=== PATIENT | female | born 1945 | race Caucasian/White ===

== ENCOUNTER 2016-04-08 10:39 | Emergency (ER) | payer MEDICARE, OTHER ==
--- NOTE | 2016-04-08 12:45 | EDDOCDS ---
Physician Documentation [facility] Name: Renate Mendez Age: 70 yrs Sex: Female : 1945 Arrival Date: 04/08/2016 Time: 10:39 Bed Family 1 Private MD: NO PRIMARY PHYSICIAN, . Disposition: 04/08/16 12:33 Discharged to Home/Self Care. Impression: Acute upper respiratory infection, unspecified, Cough. - Condition is Stable. - Discharge Instructions: Upper Respiratory Infection, Adult. - Prescriptions for Zithromax Z- Royce 250 mg Oral Tablet - take 1 tablet by ORAL route as directed for 5 days Day 1- take two tablets once. Day 2, 3, 4 , 5 take one tablet once daily.; 6 tablet. benzonatate 200 mg Oral Capsule - take 1 capsule by ORAL route 3 times per day As needed; 30 capsule. - Medication Reconciliation, Local Pharmacy Hours form. - Follow up: Emergency Department; When: As needed; Reason: Worsening of conditions. Follow up: [facility]; When: Call to arrange an appointment; Reason: Recheck today's complaints, Continuance of care, To establish care. - Problem is new. - Symptoms are unchanged. Historical: - Allergies: Latex (Hives, Rash); - Home Meds: 1. Paxil 10 mg Oral tab 1 tab once daily 2. Klonopin 1 mg Oral tab daily 3. Nexium 40 mg Oral cpDR 1 cap 2 times per day 4. prolia twice a year - PMHx: dysphagia; Anxiety; - PSHx: Appendectomy; Lumpectomy left and right; Hysterectomy; cervical spine ruptured disc; - Social history: Smoking status: Patient states was never smoker of tobacco. No barriers to communication noted, The patient speaks fluent [place]. - Family history: Not pertinent. - : The pt / caregiver states he / she is not on anticoagulants. Home medication list is obtained from the patient. - Exposure Risk Screening:: None identified. Vital Signs: 04/08 10:41 BP 143 / 81; Pulse 97; Resp 18; Temp 98.5(O); Pulse Ox 100% on R/A; Weight 49.9 kg / elp 110.01 lbs (R); Height 5 ft. 2 in. (157.48 cm) (R); Pain 10/10; 12:41 BP 113 / 63; Pulse 78; Resp 18; Temp 100.3; Pulse Ox 99% on R/A; Pain 9/10; ct3 10:41 Body Mass Index 20.12 (49.90 kg, 157.48 cm) elp MDM: 10:59 Strep Screen, Nursing ordered. dt4 11:14 GATS (NEGATIVE STREP SCREEN) Ordered. EDMS 11:26 Financial registration complete. lg 11:33 Obtain sample by nasopharyngeal swab ordered. dt4 11:34 -Influenza A&B Rapid Antigen - Nose Ordered. EDMS 11:35 Chest, 2 View (pa\E\lat) Ordered. EDMS 11:51 [facility] Payment Agreement was scanned into [employer] and attached to record. lg Signatures: Dispatcher MedHost EDMD Freeman Sinclair, RN RN Allyson Pack, Reg Reg Rain Ruelas, RN RN Ariana Reyes, CATHERINE PA-C dt4 The chart was reviewed and I authenticate all verbal orders and agree with the evaluation and treatment provided.Attachments: 11:51 [facility] Payment Agreement lg MTDD
--- NOTE | 2016-04-08 12:45 | EDDOCDS ---
Nurse's Notes [facility] Name: Renate Mendez Age: 70 yrs Sex: Female : 1945 Arrival Date: 04/08/2016 Time: 10:39 Bed Family 1 Private MD: NO PRIMARY PHYSICIAN, . Diagnosis: Acute upper respiratory infection, unspecified;Cough Presentation: 04/08 10:47 Presenting complaint: Patient states: sore throat and MELÉNDEZ began this past Sunday, jjr vomiting Sunday night with none since continues to report nausea. Adult Sepsis Screening: The patient does not have new or worsening altered mentation. Patient's respiratory rate is less than 22. Systolic blood pressure is greater than 100. Patient has a qSOFA score of 0- Negative Sepsis Screen. Suicide/Homicide risk assessment- the patient denies having any suicidal and/or homicidal ideations and does not present with any other emotional, behavioral or mental health complaints. 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 Transition of care: patient was not received from another setting of care. 10:47 Acuity: ZURDO Level 4 jjr 10:47 Method Of Arrival: Walkin/Carried/Asstd jjr Triage Assessment: 10:52 General: Appears in no apparent distress, well nourished, well groomed, Behavior is jjr appropriate for age. Pain: Location: throat and forehead and sinuses. Respiratory: Airway is patent Respiratory effort is even, unlabored, Respiratory pattern is regular. Historical: - Allergies: Latex (Hives, Rash); - Home Meds: 1. Paxil 10 mg Oral tab 1 tab once daily 2. Klonopin 1 mg Oral tab daily 3. Nexium 40 mg Oral cpDR 1 cap 2 times per day 4. prolia twice a year - PMHx: dysphagia; Anxiety; - PSHx: Appendectomy; Lumpectomy left and right; Hysterectomy; cervical spine ruptured disc; - Social history: Smoking status: Patient states was never smoker of tobacco. No barriers to communication noted, The patient speaks fluent Irish. - Family history: Not pertinent. - : The pt / caregiver states he / she is not on anticoagulants. Home medication list is obtained from the patient. - Exposure Risk Screening:: None identified. Screenin:50 Screening information is obtained from the patient. Fall risk: No risks identified. jjr Assistance ADL's: requires no assistance with activities of daily living. Abuse/DV Screen: The patient / caregiver reports he/she is: not in a situation that causes fear, pain or injury. Nutritional screening: No deficits noted. Advance Directives: There is no active DNR order. home support is adequate. Assessment: 11:50 General: Appears in no apparent distress, slender, well nourished, well groomed, jjr Behavior is appropriate for age. Respiratory: Airway is patent Respiratory effort is even, unlabored, Respiratory pattern is regular, Breath sounds are clear bilaterally. Derm: No deficits noted. Vital Signs: 10:41 BP 143 / 81; Pulse 97; Resp 18; Temp 98.5(O); Pulse Ox 100% on R/A; Weight 49.9 kg (R); elp Height 5 ft. 2 in. (157.48 cm) (R); Pain 10/10; 12:41 BP 113 / 63; Pulse 78; Resp 18; Temp 100.3; Pulse Ox 99% on R/A; Pain 9/10; ct3 10:41 Body Mass Index 20.12 (49.90 kg, 157.48 cm) elp Vitals: 10:41 Log In Time: April 08, 2016 at 10:40. elp 11:13 Strep Screen is obtained and tested: Negative, a GATSNEG culture is ordered in [facility] jr and sent. ED Course: 10:41 Patient visited by Lachelle Valladares PCA. elp 10:41 NO PRIMARY PHYSICIAN, . is Private Physician. elp 10:41 Patient moved to Waiting elp 10:42 Patient moved to Pre RCE elp 10:48 Triage Initiated jjr 10:59 Patient moved to Triage 2 jjr 11:21 [facility] dt4 11:21 Candi Campos MD is Attending Physician. dt4 11:21 Patient visited by Ariana Redd PA-C. dt4 11:31 Patient moved to Family 1 ct3 11:49 -Influenza A&B Rapid Antigen - Nose Sent. jjr 11:51 [facility] [place] Payment Agreement was scanned into [employer] and attached to record. lg 11:52 Patient visited by Mila Castillo PCA. ct3 12:32 Patient visited by Mila Castillo PCA. ct3 12:33 [facility] is Referral Physician. dt4 12:42 Patient visited by Mila Castillo PCA. ct3 12:45 The patient / caregiver is instructed regarding the plan of care and ED course. dwg 12:45 No IV's were initiated during this patient's visit. No procedures done that require dwg assistance. Order Results: Lab Order: -Influenza A&B Rapid Antigen - Nose; SPEC'M 04/08/16 11:42 Test: INFLUENZA A RAPID SCR by ICA; Value: INFLUENZA A RESULTS NEGATIVE; Status: F Test: INFLUENZA A RAPID SCR by ICA; Value: Comments:; Status: F Test: INFLUENZA B RAPID SCR by ICA; Value: INFLUENZA B RESULTS NEGATIVE; Status: F Test Note: ; The Influenza test is a direct rapid immunoassay for the qualitative detection of Influenza viral antigen. Cell culture (Viral Culture) testing should be considered to confirm NEGATIVE results and to assist in detecting other viruses that can provide similar clinical symptoms. Please contact the lab within 24 hours ([phone]) if confirmatory testing is desired. Outcome: 12:33 Discharge ordered by Provider. dt4 12:44 Discharge Assessment: Patient awake, alert and oriented x 3. No cognitive and/or dwg functional deficits noted. Patient verbalized understanding of disposition instructions. patient administered narcotics - no. The following High Risk Discharge criteria are identified: None. Discharged to home ambulatory, with family. Condition: good Condition: stable. No special radiology studies were completed. Property sent home with patient. 12:45 Patient left the ED. dwg Signatures: Freeman Sinclair RN RN Allyson Pack, Rain Dubois lg RN RN jjMila Talbot PCA SMEARER ct3 Lachelle Valladares PCA SMEARER elp Ariana Redd PA-C PA-C dt4 Corrections: (The following items were deleted from the chart) 10:49 10:47 Presenting complaint: Patient states: sore throat and MELÉNDEZ began this past sunday jjr MTDD
--- NOTE | 2016-04-10 11:02 | REP ---
PA and lateral chest: Comparison is 02/04/2008. The lung guillen are clear. The cardiac size is normal The ariana, mediastinum, and bony thorax are unremarkable. Impression: Negative PA and lateral chest. There is no interval change. Signed by Fremean Rivas MD 04/08/2016 11:52 A
--- NOTE | 2016-04-10 13:47 | EDDOCDS ---
Nurse's Notes [facility] Name: Renate Mendez Age: 70 yrs Sex: Female : 1945 Arrival Date: 04/08/2016 Time: 10:39 Bed Family 1 Private MD: NO PRIMARY PHYSICIAN, . Diagnosis: Acute upper respiratory infection, unspecified;Cough Presentation: 04/08 10:47 Presenting complaint: Patient states: sore throat and MELÉNDEZ began this past Sunday, jjr vomiting Sunday night with none since continues to report nausea. Adult Sepsis Screening: The patient does not have new or worsening altered mentation. Patient's respiratory rate is less than 22. Systolic blood pressure is greater than 100. Patient has a qSOFA score of 0- Negative Sepsis Screen. Suicide/Homicide risk assessment- the patient denies having any suicidal and/or homicidal ideations and does not present with any other emotional, behavioral or mental health complaints. 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 Transition of care: patient was not received from another setting of care. 10:47 Acuity: ZURDO Level 4 jjr 10:47 Method Of Arrival: Walkin/Carried/Asstd jjr Triage Assessment: 10:52 General: Appears in no apparent distress, well nourished, well groomed, Behavior is jjr appropriate for age. Pain: Location: throat and forehead and sinuses. Respiratory: Airway is patent Respiratory effort is even, unlabored, Respiratory pattern is regular. Historical: - Allergies: Latex (Hives, Rash); - Home Meds: 1. Paxil 10 mg Oral tab 1 tab once daily 2. Klonopin 1 mg Oral tab daily 3. Nexium 40 mg Oral cpDR 1 cap 2 times per day 4. prolia twice a year - PMHx: dysphagia; Anxiety; - PSHx: Appendectomy; Lumpectomy left and right; Hysterectomy; cervical spine ruptured disc; - Social history: Smoking status: Patient states was never smoker of tobacco. No barriers to communication noted, The patient speaks fluent Armenian. - Family history: Significant other has/had similar symptoms recently. - : The pt / caregiver states he / she is not on anticoagulants. Home medication list is obtained from the patient. - Exposure Risk Screening:: None identified. Screenin:50 Screening information is obtained from the patient. Fall risk: No risks identified. jjr Assistance ADL's: requires no assistance with activities of daily living. Abuse/DV Screen: The patient / caregiver reports he/she is: not in a situation that causes fear, pain or injury. Nutritional screening: No deficits noted. Advance Directives: There is no active DNR order. home support is adequate. Assessment: 11:50 General: Appears in no apparent distress, slender, well nourished, well groomed, jjr Behavior is appropriate for age. Respiratory: Airway is patent Respiratory effort is even, unlabored, Respiratory pattern is regular, Breath sounds are clear bilaterally. Derm: No deficits noted. 12:50 Respiratory: Reports. [facility] Vital Signs: 10:41 BP 143 / 81; Pulse 97; Resp 18; Temp 98.5(O); Pulse Ox 100% on R/A; Weight 49.9 kg (R); elp Height 5 ft. 2 in. (157.48 cm) (R); Pain 10/10; 12:41 BP 113 / 63; Pulse 78; Resp 18; Temp 100.3; Pulse Ox 99% on R/A; Pain 9/10; ct3 10:41 Body Mass Index 20.12 (49.90 kg, 157.48 cm) elp Vitals: 10:41 Log In Time: April 08, 2016 at 10:40. elp 11:13 Strep Screen is obtained and tested: Negative, a GATSNEG culture is ordered in [facility] jjr and sent. ED Course: 10:41 Patient visited by Lachelle Valladares PCA. elp 10:41 NO PRIMARY PHYSICIAN, . is Private Physician. elp 10:41 Patient moved to Waiting elp 10:42 Patient moved to Pre RCE elp 10:48 Triage Initiated jjr 10:59 Patient moved to Triage 2 jjr 11:21 [facility] eRdd [facility]-C [facility] dt4 11:21 Candi Campos MD is Attending Physician. dt4 11:21 Patient visited by Ariana Redd PA-C. dt4 11:31 Patient moved to Family 1 ct3 11:49 -Influenza A&B Rapid Antigen - Nose Sent. jjr 11:51 [facility] [place] Agreement was scanned into [email or web address] and attached to record. lg 11:52 Patient visited by Mila Castillo PCA. ct3 12:32 Patient visited by Mila Castillo PCA. ct3 12:33 [facility] is Referral Physician. dt4 12:42 Patient visited by Mila Castillo PCA. ct3 12:45 The patient / caregiver is instructed regarding the plan of care and ED course. dwg 12:45 No IV's were initiated during this patient's visit. No procedures done that require dwg assistance. 12:50 T-Sheet-- Draft Copy was scanned into [email or web address] and attached to record. [facility] 04/10 11:18 Chest, 2 View (pa\E\lat) Returned. EDMS Order Results: Lab Order: GATS (NEGATIVE STREP SCREEN); SPEC'M 04/08/16 11:15 Test: GATS CULTURE (NEG STREP SCR); Value: GATS RESULT NEGATIVE FOR STREP PYOGENES (GROUP A); Status: F Test: GATS CULTURE (NEG STREP SCR); Value: <EXTERNAL COMMENT eCWMed> FULL REPORT IN LAB NOTES (eCW and Medent).; Status: F Lab Order: -Influenza A&B Rapid Antigen - Nose; SPEC'M 04/08/16 11:42 Test: INFLUENZA A RAPID SCR by ICA; Value: INFLUENZA A RESULTS NEGATIVE; Status: F Test: INFLUENZA A RAPID SCR by ICA; Value: Comments:; Status: F Test: INFLUENZA B RAPID SCR by ICA; Value: INFLUENZA B RESULTS NEGATIVE; Status: F Test Note: ; The Influenza test is a direct rapid immunoassay for the qualitative detection of Influenza viral antigen. Cell culture (Viral Culture) testing should be considered to confirm NEGATIVE results and to assist in detecting other viruses that can provide similar clinical symptoms. Please contact the lab within 24 hours ([phone]) if confirmatory testing is desired. Radiology Order: Chest, 2 View (pa\E\lat) Test: Chest, 2 View (pa\E\lat) REASON FOR EXAMINATION: Cough; PA and lateral chest:; ; Comparison is 02/04/2008.; ; The lung guillen are clear. The cardiac size is normal; ; The ariana, mediastinum, and bony thorax are unremarkable.; ; Impression:; ; Negative PA and lateral chest. There is no interval change.; ; ; Signed by; Freeman Rivas MD 04/08/2016 11:52 A; Outcome: 04/08 12:33 Discharge ordered by Provider. dt4 12:44 Discharge Assessment: Patient awake, alert and oriented x 3. No cognitive and/or dwg functional deficits noted. Patient verbalized understanding of disposition instructions. patient administered narcotics - no. The following High Risk Discharge criteria are identified: None. Discharged to home ambulatory, with family. Condition: good Condition: stable. No special radiology studies were completed. Property sent home with patient. 12:45 Patient left the ED. dwg 12:48 The following High Risk Discharge criteria are identified: Discharged to. [facility] Signatures: Dispatcher MedHost EDMS Freeman Sinclair RN RN dwAllysno Naidu, Rain Dubois lg, RN RN rodgerr Mila Castillo, ADJUNCT INSTRUCTOR ADJUNCT INSTRUCTOR ct3 Lachelle Valladares, ADJUNCT INSTRUCTOR ADJUNCT INSTRUCTOR elp Ariana Redd, PAIsaC PA-C dt4 Abbey Cuellar Corrections: (The following items were deleted from the chart) 10:49 10:47 Presenting complaint: Patient states: sore throat and MELÉNDEZ began this past sunday jjr 12:51 12:45 Family history Not pertinent, [facility] Chart Complete MTDD
--- NOTE | 2016-04-10 13:47 | EDDOCDS ---
Physician Documentation [facility] Name: Renate Mendez Age: 70 yrs Sex: Female : 1945 Arrival Date: 04/08/2016 Time: 10:39 Bed Family 1 Private MD: NO PRIMARY PHYSICIAN, . Disposition: 04/08/16 12:33 Discharged to Home/Self Care. Impression: Acute upper respiratory infection, unspecified, Cough. - Condition is Stable. - Discharge Instructions: Upper Respiratory Infection, Adult. - Prescriptions for Zithromax Z- Royce 250 mg Oral Tablet - take 1 tablet by ORAL route as directed for 5 days Day 1- take two tablets once. Day 2, 3, 4 , 5 take one tablet once daily.; 6 tablet. benzonatate 200 mg Oral Capsule - take 1 capsule by ORAL route 3 times per day As needed; 30 capsule. - Medication Reconciliation, Local Pharmacy Hours form. - Follow up: Emergency Department; When: As needed; Reason: Worsening of conditions. Follow up: [facility]; When: Call to arrange an appointment; Reason: Recheck today's complaints, Continuance of care, To establish care. - Problem is new. - Symptoms are unchanged. Historical: - Allergies: Latex (Hives, Rash); - Home Meds: 1. Paxil 10 mg Oral tab 1 tab once daily 2. Klonopin 1 mg Oral tab daily 3. Nexium 40 mg Oral cpDR 1 cap 2 times per day 4. prolia twice a year - PMHx: dysphagia; Anxiety; - PSHx: Appendectomy; Lumpectomy left and right; Hysterectomy; cervical spine ruptured disc; - Social history: Smoking status: Patient states was never smoker of tobacco. No barriers to communication noted, The patient speaks fluent [place]er. - Family history: Significant other has/had similar symptoms recently. - : The pt / caregiver states he / she is not on anticoagulants. Home medication list is obtained from the patient. - Exposure Risk Screening:: None identified. Vital Signs: 04/08 10:41 BP 143 / 81; Pulse 97; Resp 18; Temp 98.5(O); Pulse Ox 100% on R/A; Weight 49.9 kg / elp 110.01 lbs (R); Height 5 ft. 2 in. (157.48 cm) (R); Pain 10/10; 12:41 BP 113 / 63; Pulse 78; Resp 18; Temp 100.3; Pulse Ox 99% on R/A; Pain 9/10; ct3 10:41 Body Mass Index 20.12 (49.90 kg, 157.48 cm) elp MDM: 10:59 Strep Screen, Nursing ordered. dt4 11:14 GATS (NEGATIVE STREP SCREEN) Ordered. EDMS 11:26 Financial registration complete. lg 11:33 Obtain sample by nasopharyngeal swab ordered. dt4 11:34 -Influenza A&B Rapid Antigen - Nose Ordered. EDMS 11:35 Chest, 2 View (pa\E\lat) Ordered. EDMS 11:51 [facility] [place] Agreement was scanned into [employer] and attached to record. lg 12:50 T-Sheet-- Draft Copy was scanned into [employer]OR[employer] and attached to record. [facility] Signatures: Dispatcher MedHost EDFreeman Amezquita, RN Allyson Arboleda, Reg Reg Rain Ruelas RN RN Ariana Reyes, PA-C PA-C Abbey Stuart se The chart was reviewed and I authenticate all verbal orders and agree with the evaluation and treatment provided.Corrections: (The following items were deleted from the chart) 12:51 12:45 Family history Not pertinent, leonidas lauren Attachments: 11:51 [facility] [place] Payment Agreement lg 12:50 T-Sheet-- Draft Copy [facility] Chart Complete MTDD
--- NOTE | 2016-04-10 13:47 | EDDOCDS ---
Physician Documentation [facility] Name: Renate Mendez Age: 70 yrs Sex: Female : 1945 Arrival Date: 04/08/2016 Time: 10:39 Bed Family 1 Private MD: NO PRIMARY PHYSICIAN, . Disposition: 04/08/16 12:33 Discharged to Home/Self Care. Impression: Acute upper respiratory infection, unspecified, Cough. - Condition is Stable. - Discharge Instructions: Upper Respiratory Infection, Adult. - Prescriptions for Zithromax Z- Royce 250 mg Oral Tablet - take 1 tablet by ORAL route as directed for 5 days Day 1- take two tablets once. Day 2, 3, 4 , 5 take one tablet once daily.; 6 tablet. benzonatate 200 mg Oral Capsule - take 1 capsule by ORAL route 3 times per day As needed; 30 capsule. - Medication Reconciliation, Local Pharmacy Hours form. - Follow up: Emergency Department; When: As needed; Reason: Worsening of conditions. Follow up: [facility]; When: Call to arrange an appointment; Reason: Recheck today's complaints, Continuance of care, To establish care. - Problem is new. - Symptoms are unchanged. Historical: - Allergies: Latex (Hives, Rash); - Home Meds: 1. Paxil 10 mg Oral tab 1 tab once daily 2. Klonopin 1 mg Oral tab daily 3. Nexium 40 mg Oral cpDR 1 cap 2 times per day 4. prolia twice a year - PMHx: dysphagia; Anxiety; - PSHx: Appendectomy; Lumpectomy left and right; Hysterectomy; cervical spine ruptured disc; - Social history: Smoking status: Patient states was never smoker of tobacco. No barriers to communication noted, The patient speaks fluent British. - Family history: Significant other has/had similar symptoms recently. - : The pt / caregiver states he / she is not on anticoagulants. Home medication list is obtained from the patient. - Exposure Risk Screening:: None identified. Vital Signs: 04/08 10:41 BP 143 / 81; Pulse 97; Resp 18; Temp 98.5(O); Pulse Ox 100% on R/A; Weight 49.9 kg / elp 110.01 lbs (R); Height 5 ft. 2 in. (157.48 cm) (R); Pain 10/10; 12:41 BP 113 / 63; Pulse 78; Resp 18; Temp 100.3; Pulse Ox 99% on R/A; Pain 9/10; ct3 10:41 Body Mass Index 20.12 (49.90 kg, 157.48 cm) elp MDM: 10:59 Strep Screen, Nursing ordered. dt4 11:14 GATS (NEGATIVE STREP SCREEN) Ordered. EDMS 11:26 Financial registration complete. lg 11:33 Obtain sample by nasopharyngeal swab ordered. dt4 11:34 -Influenza A&B Rapid Antigen - Nose Ordered. EDMS 11:35 Chest, 2 View (pa\E\lat) Ordered. EDMS 11:51 [facility] [place] Payment Agreement was scanned into [employer] and attached to record. lg 12:50 T-Sheet-- Draft Copy was scanned into [employer] and attached to record. [facility] Signatures: Dispatcher [employer]Host EDFreeman Amezquita, RN Allyson Arboleda, Reg Reg Rain Ruelas RN RN Ariana Reyes, PA-C PA-C Abbey Stuart se The chart was reviewed and I authenticate all verbal orders and agree with the evaluation and treatment provided.Corrections: (The following items were deleted from the chart) 12:51 12:45 Family history Not pertinent, leonidas lauren Attachments: 11:51 [facility] Payment Agreement lg 12:50 T-Sheet-- Draft Copy [facility] Chart Complete MTDD
== END 2016-04-08 12:45 | disposition home or self-care (01) ==
LOC: M ED 10:39
DX: J06.9 Acute upper respiratory infection, unspecified (principal); R13.10 Dysphagia, unspecified; F41.9 Anxiety disorder, unspecified; Z79.899 Other long term (current) drug therapy; Z91.040 Latex allergy status

== ENCOUNTER → 2016-07-19 | Outpatient (CLI) | payer MEDICARE, OTHER ==
--- NOTE | 2016-07-19 17:43 | REP ---
RIGHT HAND SERIES, COMPLETE: 07/19/2016. Clinical history: pain right hand and its joints. Prior study. Findings: Four views are provided. Distal radius and ulna show no fracture. Carpal bones without fracture, subluxation or destructive lesion. CMC joints with minimal degenerative changes. No visible fracture of the metacarpals, the MCP and IP joints. Minimal degenerative change and small marginal osteophytes DIP joints of digits and IP joint of the thumb. No fracture of the phalanges nor avulsion. No erosive change. Impression: 1. 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 The largest osteophytes are on the IP joints distally. Signed by Rios Villegas MD 07/20/2016 05:20 P
== END ==
LOC: M ADAMS 16:00
PROVIDERS: ATTEND Physician Assistant
DX: M25.541 Pain in joints of right hand (principal); M25.741 Osteophyte, right hand
CPT/HCPCS: 73130; 86038; 86431; G0463

== ENCOUNTER → 2016-07-19 | Outpatient (REF) | payer MEDICARE, OTHER | LOC: M SFHCADAM 15:54 | PROVIDERS: ATTEND Physician Assistant | DX: M25.541 Pain in joints of right hand (principal) ==

== ENCOUNTER 2017-01-06 23:28 | Emergency (ER) | payer MEDICARE, OTHER ==
[~2017-01-06] VITALS: Ht 160 cm; Wt 50.0 kg
[2017-01-06] MEDS ORDERED: NEXI40CA PO (23:40)
[2017-01-06] MEDS ORDERED: PROL60SO SC (23:40)
[2017-01-06] MEDS ORDERED: IBUP-1114 PO (23:40)
[2017-01-06] MEDS ORDERED: PAXI10TA12 PO (23:40)
[2017-01-06] MEDS ORDERED: KLON1TAB PO (23:40)
[2017-01-06] MEDS ORDERED: AUGM875T28 PO (23:40)
[2017-01-07 02:14] LABS: BASO # 0.1 10^3/uL (0.0-0.2); BASO % 0.8 % (0.0-1.0); EOS # 0.2 10^3/uL (0.0-0.50); EOS % 2.3 % (0.0-3.0); IMMATURE GRANULOCYTE % 0.1 % (0-0); LYMPH # 2.9 10^3/uL (1.5-4.5); LYMPH % 39.1 % (24.0-44.0); MEAN CORPUSCULAR HEMOGLOBIN 29.3 pg (27.0-33.0); MEAN CORPUSCULAR HGB CONC 33.4 g/dl (32.0-36.5); MEAN CORPUSCULAR VOLUME 87.7 fl (80.0-96.0); MONO # 0.6 10^3/uL (0.0-0.8); MONO % 7.9 % (0.0-5.0); NEUTROPHILS # 3.7 10^3/uL (1.8-7.7); NEUTROPHILS % 49.8 % (36.0-66.0); PLATELET COUNT, AUTOMATED 243 10^3/uL (150-450); RED CELL DISTRIBUTION WIDTH 13.9 % (11.5-14.5); WHITE BLOOD COUNT 7.4 10^3/uL (4.0-10.0)
[2017-01-07 03:09] LABS: ERYTHROCYTE SEDIMENTATION RATE 5 mm/hr (0-30)
[2017-01-07] MEDS ORDERED: CARB20TA PO (03:20)
[2017-01-07] MEDS ORDERED: carBAMazepine 100 MG *1/2* TAB PO ONE (03:30)
[2017-01-07 03:37] VITALS: BP 141/75
== END 2017-01-07 03:44 | disposition home or self-care (01) ==
LOC: M ED 23:28
DX: G50.0 Trigeminal neuralgia (principal); K21.9 Gastro-esophageal reflux disease without esophagitis; F41.9 Anxiety disorder, unspecified; M81.0 Age-related osteoporosis without current pathological fracture; Z79.2 Long term (current) use of antibiotics; Z79.899 Other long term (current) drug therapy

== ENCOUNTER → 2017-02-28 | Outpatient (REF) | payer MEDICARE, OTHER ==
[~2017-02-28] MED LIST: AUGM875T28 PO; CARB20TA PO; IBUP-1114 PO; KLON1TAB PO; NEXI40CA PO; PAXI10TA12 PO; PROL60SO SC
== END ==
LOC: M LAB REF 13:45
PROVIDERS: ATTEND Physician Assistant Medical
DX: J02.9 Acute pharyngitis, unspecified (principal)

== ENCOUNTER → 2017-10-24 | Outpatient (REF) | payer MEDICARE, OTHER ==
[2017-10-24 12:02] LABS: HEMATOCRIT 40.5 % (36.0-47.0); HEMOGLOBIN 13.2 g/dl (12.0-15.5); MEAN CORPUSCULAR HEMOGLOBIN 29.1 pg (27.0-33.0); MEAN CORPUSCULAR HGB CONC 32.6 g/dl (32.0-36.5); MEAN CORPUSCULAR VOLUME 89.4 fl (80.0-96.0); PLATELET COUNT, AUTOMATED 277 10^3/uL (150-450); RED BLOOD COUNT 4.53 10^6/uL (4.00-5.40); RED CELL DISTRIBUTION WIDTH 13.8 % (11.5-14.5)
[2017-10-24 12:33] LABS: FOLATE 14.4 NG/ML (>5.4); TOTAL 25(OH) VITAMIN D 117.2 NG/ML (30.0-100.0); VITAMIN B12 LEVEL 499 PG/ML (247-911)
[2017-10-24 12:45] LABS: ALBUMIN 3.8 GM/DL (3.2-5.2); ALBUMIN/GLOBULIN RATIO 1.27 (1.00-1.93); ALKALINE PHOSPHATASE 55 U/L (45-117); ALT/SGPT 24 U/L (12-78); ANION GAP 7 MEQ/L (8-16); AST/SGOT 12 U/L (7-37); BILIRUBIN,TOTAL 0.4 MG/DL (0.2-1.0); BLOOD UREA NITROGEN 15 MG/DL (7-18); CALCIUM LEVEL 8.9 MG/DL (8.8-10.2); CARBON DIOXIDE LEVEL 25 MEQ/L (21-32); CHLORIDE LEVEL 112 MEQ/L (98-107); CHOLESTEROL LEVEL 201 MG/DL (<200); CHOLESTEROL RISK RATIO 2.512 (<5); CREATININE FOR GFR 0.99 MG/DL (0.55-1.30); FREE T4 1.03 NG/DL (0.76-1.46); GLUCOSE, FASTING 105 MG/DL (70-100); HDL CHOLESTEROL 80 MG/DL (>40); LDL CHOLESTEROL 106.4 MG/DL (<100); NON-HDL-C 121 MG/DL; POTASSIUM SERUM 4.8 MEQ/L (3.5-5.1); SODIUM LEVEL 144 MEQ/L (136-145); TOTAL PROTEIN 6.8 GM/DL (6.4-8.2); TRIGLYCERIDES LEVEL 73 MG/DL (<150)
== END ==
LOC: M LABDRAW1 11:01
DX: K13.70 Unspecified lesions of oral mucosa (principal); M81.0 Age-related osteoporosis without current pathological fracture; E05.90 Thyrotoxicosis, unspecified without thyrotoxic crisis or storm; G50.0 Trigeminal neuralgia; Z13.220 Encounter for screening for lipoid disorders
CPT/HCPCS: 82746

== ENCOUNTER → 2018-01-15 | Outpatient (REF) | payer MEDICARE, OTHER | LOC: M LAB REF 15:55 | DX: M81.0 Age-related osteoporosis without current pathological fracture (principal) | CPT/HCPCS: 82310 ==

== ENCOUNTER 2018-04-10 06:44 | Day surgery (SDC) | payer MEDICARE, OTHER ==
[~2018-04-10] VITALS: Ht 157.5 cm; Wt 52.6 kg
[~2018-04-10 06:44] MED LIST changes: +ASPI325T PO; +BIOT50004 PO; +BLAC1CAP2 PO; +CALC600T31 PO; +MULT1TAB10 PO; +PANT40TA3 PO; +VITA1TAB7 PO; +VITA50005 PO; +VITA500T3 PO
[2018-04-10] MEDS ORDERED: NS 1,000 ML IV ONE (06:45)
[2018-04-10] MEDS ORDERED: LIDOCAINE 2% INJ 100 MG/5 ML SDV (FOR ANES.) As Ordered ONE (07:21)
[2018-04-10] MEDS ORDERED: PROPOFOL 200 MG/20 ML VIAL As Ordered ONE (07:21)
[2018-04-10] MEDS ORDERED: fentaNYL 100 MCG/2 ML INJECTION (J3010) As Ordered ONE (07:50)
--- NOTE | 2018-04-10 08:20 | ROOR ---
Patient Name: Renate Mendez Procedure Date: 04/10/2018 7:58 AM Date of : 1945 Age: 72 Room: [facility] Gender: Female Note Status: Finalized Procedure: Upper Endoscopy + Biopsies Indications: Heartburn, Exclusion of Graham's esophagus Providers: Ayden Lomas MD Referring MD: FITZ Henry Requesting Provider: Medicines: Monitored Anesthesia Care Complications: No immediate complications. Procedure: Pre-Anesthesia Assessment: - The heart rate, respiratory rate, oxygen saturations, blood pressure, adequacy of pulmonary ventilation, and response to care were monitored throughout the procedure. The Endoscope was introduced through the mouth, and advanced to the second part of duodenum. The upper GI endoscopy was accomplished without difficulty. The patient tolerated the procedure well. Findings: The Z-line was variable and was found 40 cm from the incisors. Multiple biopsies were obtained with cold forceps for evaluation to rule out Graham's Esophagus randomly at the gastroesophageal junction. No other significant abnormalities were identified in a careful examination of the stomach. The exam of the duodenum was otherwise normal. Impression: - Z-line variable, 40 cm from the incisors. - Multiple biopsies were obtained at the gastroesophageal junction. - The examination was otherwise normal. Recommendation: - Patient has a contact number available for emergencies. The signs and symptoms of potential delayed complications were discussed with the patient. Return to normal activities tomorrow. Written discharge instructions were provided to the patient. - High fiber diet. - Discharge patient to home. - Follow an antireflux regimen. - Continue present medications. - Await pathology results. - Telephone GI clinic for pathology results in 1 week. - Return to referring physician. - Check Portal Online for Path Results.([email or web address]) - Repeat upper endoscopy for surveillance based on pathology results. Ayden Lomas MD Ayden Lomas MD 04/10/2018 8:19:56 AM This report has been signed electronically. Number of Addenda: 0 Note Initiated On: 04/10/2018 7:58 AM Estimated Blood Loss: Estimated blood loss: none.
--- NOTE | 2018-04-10 08:34 | ROOR ---
Patient Name: Renate Mendez Procedure Date: 04/10/2018 7:59 AM Date of : 1945 Age: 72 Room: [facility] Gender: Female Note Status: Finalized Procedure: Total Colonoscopy to Cecum Indications: High risk colon cancer surveillance: Personal history of colonic polyps, Last colonoscopy: 2014 Providers: Ayden Lomas MD Referring MD: FITZ Henry Requesting Provider: Medicines: Monitored Anesthesia Care Complications: No immediate complications. Procedure: Pre-Anesthesia Assessment: - The heart rate, respiratory rate, oxygen saturations, blood pressure, adequacy of pulmonary ventilation, and response to care were monitored throughout the procedure. The Colonoscope was introduced through the anus and advanced to the cecum, identified by appendiceal orifice and ileocecal valve. The colonoscopy was performed without difficulty. The patient tolerated the procedure well. The quality of the bowel preparation was excellent. Findings: The perianal and digital rectal examinations were normal. Non-bleeding internal hemorrhoids were found during retroflexion. The hemorrhoids were small and Grade I (internal hemorrhoids that do not prolapse). No other significant abnormalities were identified in a careful examination of the remainder of the colon. The exam was otherwise without abnormality on direct and retroflexion views. Impression: - Non-bleeding internal hemorrhoids. - The examination was otherwise normal on direct and retroflexion views. - No specimens collected. - The exam was otherwise normal to the cecum. Recommendation: - Patient has a contact number available for emergencies. The signs and symptoms of potential delayed complications were discussed with the patient. Return to normal activities tomorrow. Written discharge instructions were provided to the patient. - High fiber diet. - Discharge patient to home. - Continue present medications. - Repeat colonoscopy in 5 years for surveillance. - Return to referring physician. - The findings and recommendations were discussed with the patient's family. Ayden Lomas MD Ayden Lomas MD 04/10/2018 8:34:09 AM This report has been signed electronically. Number of Addenda: 0 Note Initiated On: 04/10/2018 7:59 AM Estimated Blood Loss: Estimated blood loss: none.
[2018-04-10 09:00] VITALS: BP 137/69
== END 2018-04-10 09:17 | disposition home or self-care (01) ==
LOC: M OPP 06:44
PROVIDERS: ATTEND Internal Medicine Gastroenterology
DX: Z12.11 Encounter for screening for malignant neoplasm of colon (principal); Z86.010 Personal history of colon polyps; K64.0 First degree hemorrhoids; K22.8 Other specified diseases of esophagus; R12 Heartburn; Z79.82 Long term (current) use of aspirin; Z79.899 Other long term (current) drug therapy; Z91.048 Other nonmedicinal substance allergy status
CPT/HCPCS: 43239; 88305; G0105; J3010

== ENCOUNTER → 2018-07-08 | Outpatient (REF) | payer MEDICARE, OTHER ==
[~2018-07-08] MED LIST changes: +ASPI-1 PO; -ASPI325T PO
== END ==
LOC: M LAB REF 17:25
PROVIDERS: ATTEND Surgery
DX: C44.41 Basal cell carcinoma of skin of scalp and neck (principal)

== ENCOUNTER → 2018-07-16 | Outpatient (REF) | payer MEDICARE, OTHER ==
[2018-07-16 14:36] LABS: CALCIUM LEVEL 9.3 MG/DL (8.8-10.2)
[2018-07-16 14:47] LABS: TOTAL 25(OH) VITAMIN D 71.6 NG/ML (30.0-100.0)
== END ==
LOC: M LABDRAW1 11:57
PROVIDERS: ATTEND Internal Medicine Endocrinology, Diabetes & Metabolism
DX: M81.0 Age-related osteoporosis without current pathological fracture (principal); E55.9 Vitamin D deficiency, unspecified

== ENCOUNTER → 2018-10-09 | Outpatient (REF) | payer MEDICARE, OTHER ==
[~2018-10-09] MED LIST changes: +CYAN500T8 PO; -VITA500T3 PO
[2018-10-09 12:52] LABS: HEMATOCRIT 44.3 % (36.0-47.0); HEMOGLOBIN 14.7 g/dl (12.0-15.5); MEAN CORPUSCULAR HEMOGLOBIN 29.5 pg (27.0-33.0); MEAN CORPUSCULAR HGB CONC 33.2 g/dl (32.0-36.5); MEAN CORPUSCULAR VOLUME 88.8 fl (80.0-96.0); PLATELET COUNT, AUTOMATED 297 10^3/uL (150-450); RED BLOOD COUNT 4.99 10^6/uL (4.00-5.40)
[2018-10-09 13:34] LABS: ALBUMIN 4.2 GM/DL (3.2-5.2); BILIRUBIN,TOTAL 0.6 MG/DL (0.2-1.0); CALCIUM LEVEL 9.6 MG/DL (8.8-10.2); CHOLESTEROL RISK RATIO 2.905 (<5); CREATININE FOR GFR 1.04 MG/DL (0.55-1.30); FREE T4 1.11 NG/DL (0.76-1.46); GLOMERULAR FILTRATION RATE 55.8 (>39); POTASSIUM SERUM 4.3 MEQ/L (3.5-5.1); THYROID STIMULATING HORMONE 0.447 uIU/ML (0.358-3.740); TOTAL PROTEIN 7.1 GM/DL (6.4-8.2)
== END ==
LOC: M SFHCADAM 11:01
PROVIDERS: ATTEND Physician Assistant
DX: F41.9 Anxiety disorder, unspecified (principal); E78.5 Hyperlipidemia, unspecified; E05.90 Thyrotoxicosis, unspecified without thyrotoxic crisis or storm; E55.9 Vitamin D deficiency, unspecified

== ENCOUNTER → 2018-11-27 | Outpatient (REF) | payer MEDICARE, OTHER | LOC: M SFHCPLAZ 18:50 | PROVIDERS: ATTEND Dermatology | DX: D23.71 Other benign neoplasm of skin of right lower limb, including hip (principal); D36.13 Benign neoplasm of peripheral nerves and autonomic nervous system of lower limb, including hip ==

== ENCOUNTER → 2019-02-03 | Outpatient (REF) | payer MEDICARE, OTHER | LOC: M LABDRAW1 17:17 | PROVIDERS: ATTEND Internal Medicine Endocrinology, Diabetes & Metabolism | DX: M81.0 Age-related osteoporosis without current pathological fracture (principal) ==

== ENCOUNTER → 2019-04-27 | Outpatient (REF) | payer MEDICARE, OTHER | LOC: M LAB REF 12:58 | PROVIDERS: ATTEND Physician Assistant | DX: N39.0 Urinary tract infection, site not specified (principal) ==

== ENCOUNTER → 2019-07-16 | Outpatient (CLI) | payer MEDICARE, OTHER ==
--- NOTE | 2019-07-16 14:30 | REP ---
CHEST, TWO VIEWS: COMPARISON: 04/08/2016 There is no evidence of acute infiltrate. No pleural effusion is seen. The heart is normal in size. The mediastinal silhouette is unremarkable. The visualized osseous structures are intact. IMPRESSION: No acute pulmonary disease. Electronically Signed by Freeman Urbano MD 07/16/2019 03:09 P
== END ==
LOC: M ADAMS 10:01
PROVIDERS: ATTEND Physician Assistant
DX: I95.1 Orthostatic hypotension (principal)
CPT/HCPCS: 71046; G0463

== ENCOUNTER → 2019-08-05 | Outpatient (REF) | payer MEDICARE, OTHER ==
[2019-08-05 17:57] LABS: CALCIUM LEVEL 8.5 MG/DL (8.8-10.2)
[2019-08-05 18:15] LABS: TOTAL 25(OH) VITAMIN D 70.1 NG/ML (30.0-100.0)
== END ==
LOC: M LABDRWAD 16:32
PROVIDERS: ATTEND Internal Medicine Endocrinology, Diabetes & Metabolism
DX: E55.9 Vitamin D deficiency, unspecified (principal); R31.0 Gross hematuria; N39.0 Urinary tract infection, site not specified

== ENCOUNTER → 2019-08-05 | Outpatient (REF) | payer MEDICARE, OTHER ==
[2019-08-05 18:01] LABS: BLOOD UREA NITROGEN 11 MG/DL (7-18); CALCIUM LEVEL 8.5 MG/DL (8.8-10.2); CARBON DIOXIDE LEVEL 27 MEQ/L (21-32); CHLORIDE LEVEL 114 MEQ/L (98-107); CREATININE FOR GFR 0.94 MG/DL (0.55-1.30); GLOMERULAR FILTRATION RATE > 60.0 (>39); GLUCOSE, FASTING 96 MG/DL (70-100); POTASSIUM SERUM 4.9 MEQ/L (3.5-5.1); SODIUM LEVEL 144 MEQ/L (136-145)
== END ==
LOC: M SFHCADAM 14:05 → M LABSMT 14:05
PROVIDERS: ATTEND Nurse Practitioner Family
DX: R31.0 Gross hematuria (principal); N39.0 Urinary tract infection, site not specified

== ENCOUNTER → 2019-08-21 | Outpatient (CLI) | payer MEDICARE, OTHER ==
[~2019-08-21] MED LIST changes: +ISOVUE-370 76% 100ML VIAL As Ordered ONE
--- NOTE | 2019-08-21 16:27 | REP ---
REASON FOR EXAM: Recurrent UTI. PRIORS: None. CONTRAST: 100 mL [id number]. The precontrast enhanced portion of the exam shows tiny bilateral nonobstructing renal calculi, right greater than left. There are no choleliths. There are no urinary bladder calcifications. The contrast opacified portion of the examination shows the liver, gallbladder, spleen, pancreas, adrenal glands, and kidneys to be within normal limits. The abdominal aorta and para-aortic regions are within normal limits. No free fluid or free air is seen in the abdomen or pelvis. The intra-abdominal and intrapelvic bowel loops and their mesenteries are within normal limits. There is no evidence of an intra-abdominal or intrapelvic mass or adenopathy. Delayed imaging through the abdomen and pelvis with MIP reformatted 3D imaging of the collecting system bilaterally shows no evidence of an abnormality, however, due to poor opacification of the distal aspect of each ureter and poor opacification of the proximal aspect of the right ureter, this renders poor 3D imaging with the imaged portions of the collecting system and urinary bladder to have an unremarkable appearance. Bone window technique throughout the examination shows age-related degenerative changes. IMPRESSION: Bilateral nephroliths, as described above. There is no obstructive uropathy. There is no acute intra-abdominal or intrapelvic disease. Findings and limitations as described above. Electronically Signed by Carlin Castellano DO 08/21/2019 05:07 P
== END ==
LOC: M RAD 14:01
PROVIDERS: ATTEND Nurse Practitioner Family
DX: N39.0 Urinary tract infection, site not specified (principal); N20.0 Calculus of kidney
CPT/HCPCS: 74178; Q9967

== ENCOUNTER → 2019-12-01 | Outpatient (REF) | payer MEDICARE, OTHER ==
[~2019-12-01] MED LIST changes: -ISOVUE-370 76% 100ML VIAL As Ordered ONE; +PANT40TA29 PO; -PANT40TA3 PO
[2019-12-01 17:53] LABS: APPEARANCE, URINE HAZY (CLEAR); BACTERIA, URINE AUTO NEGATIVE (NEGATIVE); BILIRUBIN, URINE AUTO NEGATIVE (NEGATIVE); BLOOD, URINE BLOOD NEGATIVE (NEGATIVE); COLOR, URINE YELLOW (YELLOW); GLUCOSE, URINE (UA) AUTO NEGATIVE (NEGATIVE); KETONE, URINE AUTO TRACE mg/dL (NEGATIVE); LEUKOCYTE ESTERASE, URINE AUTO NEGATIVE (NEGATIVE); NITRITE, URINE AUTO NEGATIVE (NEGATIVE); PROTEIN, URINE AUTO NEGATIVE (NEGATIVE); RBC, URINE AUTO 1 /HPF (0-3); SPECIFIC GRAVITY URINE AUTO 1.015 (1.002-1.035); SQUAMOUS EPITHELIAL CELL UR AU 1 /HPF (0-6); UROBILINOGEN, URINE AUTO 0.2 mg/dL (0.0-2.0); WBC, URINE AUTO 3 /HPF (0-3)
== END ==
LOC: M SMT 17:01
PROVIDERS: ATTEND Nurse Practitioner Family
DX: R30.0 Dysuria (principal)

== ENCOUNTER → 2019-12-05 | Outpatient (REF) | payer MEDICARE, OTHER ==
[2019-12-05 17:28] LABS: AMORPHOUS SEDIMENT SMALL (NEGATIVE); APPEARANCE, URINE CLOUDY (CLEAR); BACTERIA, URINE AUTO 2+ (NEGATIVE); BILIRUBIN, URINE AUTO NEGATIVE (NEGATIVE); BLOOD, URINE BLOOD 3+ (NEGATIVE); COLOR, URINE YELLOW (YELLOW); GLUCOSE, URINE (UA) AUTO NEGATIVE (NEGATIVE); KETONE, URINE AUTO NEGATIVE (NEGATIVE); LEUKOCYTE ESTERASE, URINE AUTO 3+ (NEGATIVE); NITRITE, URINE AUTO NEGATIVE (NEGATIVE); PROTEIN, URINE AUTO NEGATIVE (NEGATIVE); RBC, URINE AUTO 10 /HPF (0-3); SPECIFIC GRAVITY URINE AUTO 1.001 (1.002-1.035); SQUAMOUS EPITHELIAL CELL UR AU 0 /HPF (0-6); UROBILINOGEN, URINE AUTO 0.2 mg/dL (0.0-2.0); WBC, URINE AUTO 67 /HPF (0-3)
== END ==
LOC: M SMT 16:46
PROVIDERS: ATTEND Nurse Practitioner Family
DX: N39.0 Urinary tract infection, site not specified (principal)

== ENCOUNTER → 2019-12-15 | Outpatient (REF) | payer MEDICARE, OTHER | LOC: M SMT 18:08 | PROVIDERS: ATTEND Nurse Practitioner Family | DX: N39.0 Urinary tract infection, site not specified (principal) ==

== ENCOUNTER → 2019-12-18 | Outpatient (REF) | payer MEDICARE, OTHER ==
[2019-12-18 14:27] LABS: APPEARANCE, URINE HAZY (CLEAR); BACTERIA, URINE AUTO NEGATIVE (NEGATIVE); BILIRUBIN, URINE AUTO NEGATIVE (NEGATIVE); BLOOD, URINE BLOOD NEGATIVE (NEGATIVE); COLOR, URINE AMBER (YELLOW); GLUCOSE, URINE (UA) AUTO NEGATIVE (NEGATIVE); KETONE, URINE AUTO NEGATIVE (NEGATIVE); LEUKOCYTE ESTERASE, URINE AUTO NEGATIVE (NEGATIVE); MUCUS, URINE SMALL (NEGATIVE); NITRITE, URINE AUTO NEGATIVE (NEGATIVE); PROTEIN, URINE AUTO 1+ mg/dL (NEGATIVE); RBC, URINE AUTO 2 /HPF (0-3); SPECIFIC GRAVITY URINE AUTO 1.017 (1.002-1.035); SQUAMOUS EPITHELIAL CELL UR AU 1 /HPF (0-6); WBC, URINE AUTO 8 /HPF (0-3)
== END ==
LOC: M SMT 13:32
PROVIDERS: ATTEND Nurse Practitioner Family
DX: N39.0 Urinary tract infection, site not specified (principal)
CPT/HCPCS: 51702; 81001; 87086; G8483

== ENCOUNTER → 2019-12-23 | Outpatient (REF) | payer MEDICARE, OTHER ==
[2019-12-23 17:09] LABS: HEMATOCRIT 40.7 % (36.0-47.0); HEMOGLOBIN 12.9 g/dl (12.0-15.5); MEAN CORPUSCULAR HEMOGLOBIN 29.9 pg (27.0-33.0); MEAN CORPUSCULAR HGB CONC 31.7 g/dl (32.0-36.5); MEAN CORPUSCULAR VOLUME 94.4 fl (80.0-96.0); PLATELET COUNT, AUTOMATED 317 10^3/uL (150-450); RED BLOOD COUNT 4.31 10^6/uL (4.00-5.40)
[2019-12-23 17:16] LABS: ALBUMIN 4.1 GM/DL (3.2-5.2); BILIRUBIN,TOTAL 0.7 MG/DL (0.2-1.0); CHOLESTEROL RISK RATIO 2.714 (<5); CREATININE FOR GFR 1.17 MG/DL (0.55-1.30); FREE T4 1.11 NG/DL (0.76-1.46); GLOMERULAR FILTRATION RATE 48.4 (>39); POTASSIUM SERUM 4.9 MEQ/L (3.5-5.1); THYROID STIMULATING HORMONE 0.257 uIU/ML (0.358-3.740)
[2019-12-23 17:20] LABS: TOTAL 25(OH) VITAMIN D 69.7 NG/ML (30.0-100.0)
== END ==
LOC: M SFHCADAM 13:53
PROVIDERS: ATTEND Physician Assistant
DX: N39.0 Urinary tract infection, site not specified (principal); I95.1 Orthostatic hypotension; E55.9 Vitamin D deficiency, unspecified; E05.90 Thyrotoxicosis, unspecified without thyrotoxic crisis or storm
CPT/HCPCS: 80053; 80061; 82306; 84439; 84443; 85027; G0463

== ENCOUNTER → 2020-02-11 | Outpatient (REF) | payer MEDICARE, OTHER ==
[~2020-02-11] MED LIST changes: +CYAN500T14 PO; -CYAN500T8 PO
== END ==
LOC: M LABDRWAD 16:29
PROVIDERS: ATTEND Internal Medicine Endocrinology, Diabetes & Metabolism
DX: M81.0 Age-related osteoporosis without current pathological fracture (principal)

== ENCOUNTER → 2020-08-10 | Outpatient (REF) | payer MEDICARE, OTHER | LOC: M LAB REF 13:51 | PROVIDERS: ATTEND Dermatology | DX: B07.9 Viral wart, unspecified (principal) ==

== ENCOUNTER → 2020-08-23 | Outpatient (REF) | payer MEDICARE, OTHER ==
[2020-08-23 14:52] LABS: CALCIUM LEVEL 9.5 MG/DL (8.8-10.2)
== END ==
LOC: M LABDRWAD 13:30
PROVIDERS: ATTEND Internal Medicine Endocrinology, Diabetes & Metabolism
DX: M81.0 Age-related osteoporosis without current pathological fracture (principal); E55.9 Vitamin D deficiency, unspecified

== ENCOUNTER 2020-08-29 16:46 | Emergency (ER) | payer MEDICARE, OTHER ==
[~2020-08-29] VITALS: Ht 160 cm; Wt 50.9 kg
[2020-08-29 16:47] VITALS: BP 142/66
[2020-08-29] MEDS ORDERED: NORCO, ANEXSIA 5/325MG TABLET (HYDROcodone/ACETAMINOPHEN) PO ONE (20:00)
--- NOTE | 2020-08-29 20:07 | REPVR ---
PROCEDURE INFORMATION: Exam: XR Left Foot Exam date and time: 08/29/2020 5:46 PM Age: 74 years old Clinical indication: Pain; Foot; Left; Additional info: Trauma TECHNIQUE: Imaging protocol: XR Left foot. Views: 3 or more views. COMPARISON: No relevant prior studies available. FINDINGS: Bones/joints: There is a nondisplaced incomplete fracture of the proximal 5th metatarsal. No other fracture or malalignment. Joint spaces are unremarkable. Soft tissues: Unremarkable. IMPRESSION: Nondisplaced fracture of the proximal 5th metatarsal. Electronically signed by: Francis Mckinney On 08/29/2020 20:07:00 PM
== END 2020-08-29 20:15 | disposition home or self-care (01) ==
LOC: M ED 16:46
DX: S92.355A Nondisplaced fracture of fifth metatarsal bone, left foot, initial encounter for closed fracture (principal); X50.0XXA Overexertion from strenuous movement or load, initial encounter; Y92.019 Unspecified place in single-family (private) house as the place of occurrence of the external cause; Y93.9 Activity, unspecified; Y99.9 Unspecified external cause status; K21.9 Gastro-esophageal reflux disease without esophagitis; F41.9 Anxiety disorder, unspecified; Z88.6 Allergy status to analgesic agent; Z79.899 Other long term (current) drug therapy; Z79.82 Long term (current) use of aspirin

== ENCOUNTER → 2020-09-16 | Outpatient (REF) | payer MEDICARE, OTHER ==
[2020-09-16 19:54] LABS: FREE T4 1.19 NG/DL (0.76-1.46); THYROID STIMULATING HORMONE 0.267 uIU/ML (0.358-3.740)
== END ==
LOC: M SFHCADAM 15:45
PROVIDERS: ATTEND Physician Assistant
DX: Z00.00 Encounter for general adult medical examination without abnormal findings (principal); E05.90 Thyrotoxicosis, unspecified without thyrotoxic crisis or storm; E55.9 Vitamin D deficiency, unspecified; M81.0 Age-related osteoporosis without current pathological fracture; E78.2 Mixed hyperlipidemia; K21.9 Gastro-esophageal reflux disease without esophagitis; R42 Dizziness and giddiness
CPT/HCPCS: 84439; 84443; 93005; G0463

== ENCOUNTER → 2020-09-28 | Outpatient (CLI) | payer MEDICARE, OTHER ==
--- NOTE | 2020-09-28 16:39 | REP ---
INDICATION: STRESS FX LT FOTT SUBS FOR FX W ROUTN HEAL. COMPARISON: Comparison radiographs of the left foot are from August 29, 2020.. TECHNIQUE: Four views of the left foot are obtained through overlying cast material. FINDINGS: Four views of the left foot demonstrate persistent fracture radiolucency through the proximal diaphysis of the 5th metatarsal. There is some evidence of periosteal reaction. No displacement. No new bony lesion. IMPRESSION: Healing proximal 5th metatarsal diaphyseal fracture. <Electronically signed by Milton Brunner > 09/28/20 [id number]
== END ==
LOC: M SOG 14:47
PROVIDERS: ATTEND Orthopaedic Surgery Sports Medicine
DX: M84.375D Stress fracture, left foot, subsequent encounter for fracture with routine healing (principal)

== ENCOUNTER → 2020-10-18 | Outpatient (CLI) | payer MEDICARE, OTHER ==
--- NOTE | 2020-10-18 13:48 | REP ---
INDICATION: STRESS FX OF LT FOOT FUBS FOR FX W ROUTN HEAL. COMPARISON: Multiple the latest 09/28/[address] TECHNIQUE: Four views FINDINGS: The previously described fracture involving the base of the 5th metatarsal is again identified. Callus formation is present consistent with healing. There is no evidence of an acute fracture. IMPRESSION: Healing 5th metatarsal fracture. <Electronically signed by Carlin Castellano > 10/18/20 [id number]
== END ==
LOC: M SOG 13:25
PROVIDERS: ATTEND Orthopaedic Surgery Sports Medicine
DX: M84.375D Stress fracture, left foot, subsequent encounter for fracture with routine healing (principal)

== ENCOUNTER → 2021-02-18 | Outpatient (REF) | payer MEDICARE, OTHER | LOC: M LAB REF 17:33 | PROVIDERS: ATTEND Dermatology | DX: D22.71 Melanocytic nevi of right lower limb, including hip (principal) ==

== ENCOUNTER → 2021-02-24 | Outpatient (REF) | payer MEDICARE, OTHER | LOC: M LABDRWAD 16:14 | PROVIDERS: ATTEND Internal Medicine Endocrinology, Diabetes & Metabolism | DX: M81.0 Age-related osteoporosis without current pathological fracture (principal) ==

== ENCOUNTER → 2021-05-20 | Outpatient (REF) | payer MEDICARE, OTHER ==
[2021-05-20 15:08] LABS: BASO # 0.1 10^3/uL (0.0-0.2); BASO % 0.7 % (0.0-1.0); EOS # 0.1 10^3/uL (0.0-0.5); EOS % 1.4 % (0.0-3.0); HEMATOCRIT 40.3 % (36.0-47.0); HEMOGLOBIN 13.4 g/dl (12.0-15.5); LYMPH % 26.1 % (24.0-44.0); MEAN CORPUSCULAR HEMOGLOBIN 29.6 pg (27.0-33.0); MEAN CORPUSCULAR HGB CONC 33.3 g/dl (32.0-36.5); MEAN CORPUSCULAR VOLUME 89.2 fl (80.0-96.0); MONO # 0.6 10^3/uL (0.0-0.8); MONO % 7.6 % (2.0-8.0); NEUTROPHILS # 4.9 10^3/uL (1.5-8.5); NEUTROPHILS % 63.9 % (36.0-66.0); PLATELET COUNT, AUTOMATED 258 10^3/uL (150-450); RED BLOOD COUNT 4.52 10^6/uL (4.00-5.40); WHITE BLOOD COUNT 7.7 10^3/uL (4.0-10.0)
[2021-05-20 15:21] LABS: BILIRUBIN,TOTAL 0.3 MG/DL (0.2-1.0); CALCIUM LEVEL 9.5 MG/DL (8.8-10.2); FREE T4 1.13 NG/DL (0.76-1.46); GLOMERULAR FILTRATION RATE 57.9 (>39); POTASSIUM SERUM 4.7 MEQ/L (3.5-5.1); THYROID STIMULATING HORMONE 0.288 uIU/ML (0.358-3.740); TOTAL PROTEIN 6.6 GM/DL (6.4-8.2)
[2021-05-20 15:27] LABS: FOLATE 11.2 NG/ML
[2021-05-23 16:08] LABS: Lyme Disease IgG/IgM Antibodie <0.91 ISR (0.00-0.90); Lyme Disease IgM Ab Quantitati <0.80 index (0.00-0.79)
== END ==
LOC: M SFHCADAM 12:55
PROVIDERS: ATTEND Physician Assistant
DX: H81.13 Benign paroxysmal vertigo, bilateral (principal); E05.90 Thyrotoxicosis, unspecified without thyrotoxic crisis or storm

== ENCOUNTER → 2021-07-01 | Outpatient (CLI) | payer MEDICARE, OTHER | LOC: M PLARAD 08:49 | PROVIDERS: ATTEND Physician Assistant | DX: H81.13 Benign paroxysmal vertigo, bilateral (principal) ==

== ENCOUNTER → 2021-08-02 | Outpatient (REF) | payer MEDICARE, OTHER | LOC: M SFHCADAM 13:09 | PROVIDERS: ATTEND Physician Assistant | DX: E55.9 Vitamin D deficiency, unspecified (principal) ==

== ENCOUNTER → 2021-08-09 | Outpatient (REF) | payer MEDICARE, OTHER ==
[2021-08-09 17:46] LABS: FREE T3 2.4 PG/ML (2.2-4.0); FREE T4 1.02 NG/DL (0.76-1.46); TOTAL T3 101.7 NG/DL (60.0-181.0)
== END ==
LOC: M SFHCADAM 12:57
PROVIDERS: ATTEND Physician Assistant
DX: E05.90 Thyrotoxicosis, unspecified without thyrotoxic crisis or storm (principal)

== ENCOUNTER → 2021-08-31 | Outpatient (CLI) | payer MEDICARE, OTHER | LOC: M PLAIMG 13:14 | PROVIDERS: ATTEND Physician Assistant | DX: R68.84 Jaw pain (principal) ==

== ENCOUNTER → 2021-10-31 | Outpatient (CLI) | payer MEDICARE, OTHER ==
[2021-10-31 16:58] LABS: CALCIUM LEVEL 9.4 MG/DL (8.8-10.2)
[2021-10-31 18:00] LABS: TOTAL 25(OH) VITAMIN D 69.6 NG/ML (30.0-100.0)
== END ==
LOC: M ADAMS 14:20
PROVIDERS: ATTEND Internal Medicine Endocrinology, Diabetes & Metabolism
DX: M81.0 Age-related osteoporosis without current pathological fracture (principal); E55.9 Vitamin D deficiency, unspecified; Z79.899 Other long term (current) drug therapy

== ENCOUNTER → 2021-11-25 | Outpatient (REF) | payer MEDICARE, OTHER ==
[2021-11-25 13:56] LABS: HEMATOCRIT 41.8 % (36.0-47.0); HEMOGLOBIN 13.6 g/dl (12.0-15.5); MEAN CORPUSCULAR HEMOGLOBIN 30.1 pg (27.0-33.0); MEAN CORPUSCULAR HGB CONC 32.5 g/dl (32.0-36.5); MEAN CORPUSCULAR VOLUME 92.5 fl (80.0-96.0); PLATELET COUNT, AUTOMATED 271 10^3/uL (150-450); RED BLOOD COUNT 4.52 10^6/uL (4.00-5.40); WHITE BLOOD COUNT 6.9 10^3/uL (4.0-10.0)
[2021-11-25 14:46] LABS: ALBUMIN 4.2 GM/DL (3.2-5.2); BILIRUBIN,TOTAL 0.7 MG/DL (0.2-1.0); CALCIUM LEVEL 9.3 MG/DL (8.8-10.2); CREATININE FOR GFR 0.98 MG/DL (0.55-1.30); GLOMERULAR FILTRATION RATE 59.1 (>39); POTASSIUM SERUM 4.1 MEQ/L (3.5-5.1)
== END ==
LOC: M SFHCADAM 11:09
PROVIDERS: ATTEND Physician Assistant
DX: Z01.818 Encounter for other preprocedural examination (principal)

== ENCOUNTER → 2021-11-27 | Outpatient (CLI) | payer MEDICARE, OTHER | LOC: M LABSMTC 11:47 | PROVIDERS: ATTEND Anesthesiology | DX: Z01.818 Encounter for other preprocedural examination (principal); Z11.52 Encounter for screening for COVID-19 ==

== ENCOUNTER 2021-12-01 10:58 | Day surgery (SDC) | payer MEDICARE, OTHER ==
[~2021-12-01] VITALS: Ht 160 cm; Wt 53.5 kg
[~2021-12-01 10:58] MED LIST changes: +CALC600T61 PO; +ERGO500029 PO; +NEUR100C PO; +VITA50TA43 PO; +VITMTA PO; +dexameTHASONE 4 MG/ML 1ML VIAL (J1100 PER 1MG) IV ONE
[2021-12-01] MEDS ORDERED: LR 1,000 ML IV SCH ×3 (11:55→15:50)
[2021-12-01] MEDS ORDERED: fentaNYL 100 MCG/2 ML INJECTION As Ordered ONE (12:40)
[2021-12-01] MEDS ORDERED: dexameTHASONE 4 MG/ML 1ML VIAL (J1100 PER 1MG) As Ordered ONE ×2 (12:40→12:41)
[2021-12-01] MEDS ORDERED: LIDOCAINE 2% 100MG/5ML SDV (FOR ANES.) As Ordered ONE (12:41)
[2021-12-01] MEDS ORDERED: ROCURONIUM BROMIDE 50 MG/5 ML VIAL As Ordered ONE (12:45)
[2021-12-01] MEDS ORDERED: propofoL 200 MG/20 ML VIAL As Ordered ONE (12:45)
[2021-12-01] MEDS ORDERED: ONDANSETRON 4MG 2ML VIAL As Ordered ONE (13:00)
[2021-12-01] MEDS ORDERED: SUGAMMADEX SODIUM 500 MG/5 ML VIAL (BRIDION) As Ordered ONE (13:02)
[2021-12-01] MEDS ORDERED: LIDOCAINE W/EPINEPHRINE 1% 20ML VIAL As Ordered ONE (13:48)
[2021-12-01] MEDS ORDERED: METHYLENE BLUE 0.5% (5MG/ML) 10 ML AMP (PROVAYBLUE) As Ordered ONE (13:48)
[2021-12-01] MEDS ORDERED: OXYMETAZOLINE 0.05% NASAL SPRAY (AFRIN) As Ordered ONE (13:50)
[2021-12-01] MEDS ORDERED: PHENYLephrine 500MCG 5ML (100MCG/ML) SYRINGE As Ordered ONE (14:23)
[2021-12-01] MEDS ORDERED: ePHEDrine SULFATE 25 MG/5 ML(5MG/ML) SYRINGE As Ordered ONE (14:24)
[2021-12-01] MEDS ORDERED: GLYCOPYRROLATE INJ 0.2 MG/ML 2 ML VIAL As Ordered ONE (14:27)
[2021-12-01] MEDS ORDERED: oxyCODONE 5MG TAB PO PRN (15:10)
[2021-12-01] MEDS ORDERED: fentaNYL 100 MCG/2 ML INJECTION IV PRN (15:10)
[2021-12-01] MEDS ORDERED: ONDANSETRON 4MG 2ML VIAL IV PRN (15:10)
[2021-12-01] MEDS ORDERED: HYDROMORPHONE HCL 0.5 MG/ 0.5 ML SYRINGE (J1170 PER 1) IV PRN (15:10)
[2021-12-01 16:20] VITALS: BP 128/67
== END 2021-12-01 16:23 | disposition home or self-care (01) ==
LOC: M SDC 10:58
PROVIDERS: ATTEND Otolaryngology
DX: J38.7 Other diseases of larynx (principal); K21.9 Gastro-esophageal reflux disease without esophagitis; Z88.5 Allergy status to narcotic agent; Z91.048 Other nonmedicinal substance allergy status
CPT/HCPCS: 31536; 88305; J1100; J2370; J2405; J3010; Q9968

== ENCOUNTER 2022-02-13 08:59 | Emergency (ER) | payer MEDICARE, OTHER ==
[~2022-02-13] VITALS: Ht 160 cm; Wt 55.5 kg
[~2022-02-13 08:59] MED LIST changes: -dexameTHASONE 4 MG/ML 1ML VIAL (J1100 PER 1MG) IV ONE
[2022-02-13] MEDS ORDERED: diazePAM 10MG/2ML SYRINGE (J3360 PER 5MG) IV ONE ×3 (10:30→13:45)
[2022-02-13] MEDS ORDERED: LIDOCAINE 5% (LIDODERM) PATCH TD ONE (10:30)
[2022-02-13 10:57] LABS: BASO # 0.1 10^3/uL (0.0-0.2); EOS # 0.2 10^3/uL (0.0-0.5); EOS % 3.1 % (0.0-3.0); HEMATOCRIT 40.1 % (36.0-47.0); LYMPH # 2.3 10^3/uL (1.5-5.0); LYMPH % 32.4 % (24.0-44.0); MEAN CORPUSCULAR HEMOGLOBIN 29.3 pg (27.0-33.0); MEAN CORPUSCULAR HGB CONC 32.4 g/dl (32.0-36.5); MEAN CORPUSCULAR VOLUME 90.5 fl (80.0-96.0); MONO # 0.5 10^3/uL (0.0-0.8); MONO % 7.2 % (2.0-8.0); PLATELET COUNT, AUTOMATED 235 10^3/uL (150-450); RED BLOOD COUNT 4.43 10^6/uL (4.00-5.40); WHITE BLOOD COUNT 7.1 10^3/uL (4.0-10.0)
[2022-02-13 11:32] LABS: MAGNESIUM LEVEL 1.8 MG/DL (1.8-2.4)
[2022-02-13 11:33] LABS: BLOOD UREA NITROGEN 15 MG/DL (9-23); CALCIUM LEVEL 9.3 MG/DL (8.3-10.6); CARBON DIOXIDE LEVEL 26 MMOL/L (20-31); CHLORIDE LEVEL 109 MMOL/L (98-107); CREATININE FOR GFR 0.92 MG/DL (0.55-1.30); GLOMERULAR FILTRATION RATE > 60.0 (>39); GLUCOSE, FASTING 112 MG/DL (74-106); POTASSIUM SERUM 3.9 MMOL/L (3.5-5.1); SODIUM LEVEL 143 MMOL/L (136-145)
[2022-02-13] MEDS ORDERED: ASPE4PAD TOP (13:07)
[2022-02-13] MEDS ORDERED: PRED20TA PO (13:07)
[2022-02-13] MEDS ORDERED: METH-1165 PO (13:07)
[2022-02-13] MEDS ORDERED: IBUP-1022 PO (13:07)
[2022-02-13 13:51] VITALS: BP 181/81
== END 2022-02-13 13:55 | disposition home or self-care (01) ==
LOC: M ED 08:59
DX: M54.12 Radiculopathy, cervical region (principal); R20.2 Paresthesia of skin; M25.78 Osteophyte, vertebrae; M48.02 Spinal stenosis, cervical region; M43.22 Fusion of spine, cervical region; K21.9 Gastro-esophageal reflux disease without esophagitis; M81.0 Age-related osteoporosis without current pathological fracture; F42.9 Obsessive-compulsive disorder, unspecified; Z90.89 Acquired absence of other organs; Z90.710 Acquired absence of both cervix and uterus; Z88.5 Allergy status to narcotic agent; Z91.048 Other nonmedicinal substance allergy status; Z79.899 Other long term (current) drug therapy; M79.621 Pain in right upper arm
CPT/HCPCS: 72125; 80048; 83735; 85025; 93971; 96374; 96376; 99284; J3360

== ENCOUNTER 2022-02-17 11:33 | Observation (INO) | payer MEDICARE, OTHER ==
[~2022-02-17] VITALS: Ht 160 cm; Wt 55.1 kg
[~2022-02-17 11:33] MED LIST changes: +ASPE4PAD TOP; +IBUP-1022 PO; +METH-1165 PO; -PAXI10TA12 PO; +PAXI10TA13 PO; +PRED20TA PO
[2022-02-17 14:30] LABS: BASO % 0.1 % (0.0-1.0); HEMATOCRIT 40.2 % (36.0-47.0); LYMPH # 1.8 10^3/uL (1.5-5.0); LYMPH % 14.2 % (24.0-44.0); MEAN CORPUSCULAR HEMOGLOBIN 29.1 pg (27.0-33.0); MEAN CORPUSCULAR HGB CONC 32.3 g/dl (32.0-36.5); MEAN CORPUSCULAR VOLUME 90.1 fl (80.0-96.0); MONO % 8.1 % (2.0-8.0); NEUTROPHILS # 9.8 10^3/uL (1.5-8.5); PLATELET COUNT, AUTOMATED 273 10^3/uL (150-450); RED BLOOD COUNT 4.46 10^6/uL (4.00-5.40); WHITE BLOOD COUNT 12.7 10^3/uL (4.0-10.0)
[2022-02-17 14:53] LABS: BLOOD UREA NITROGEN 24 MG/DL (9-23); CALCIUM LEVEL 9.7 MG/DL (8.3-10.6); CARBON DIOXIDE LEVEL 28 MMOL/L (20-31); CHLORIDE LEVEL 106 MMOL/L (98-107); CREATININE FOR GFR 0.81 MG/DL (0.55-1.30); GLOMERULAR FILTRATION RATE > 60.0 (>39); GLUCOSE, FASTING 110 MG/DL (74-106); SODIUM LEVEL 142 MMOL/L (136-145)
[2022-02-17] MEDS ORDERED: ISOVUE-370 76% 100ML VIAL As Ordered ONE (15:27)
[2022-02-17] MEDS ORDERED: hydrALAZINE 20MG/ML 1ML VIAL IV ONE (17:40)
[2022-02-17] MEDS ORDERED: LOSARTAN 25 MG TAB PO ONE ×2 (17:45→21:00)
[2022-02-17] MEDS ORDERED: **hydrALAZINE HCL** 25 MG TAB PO PRN (17:50)
[2022-02-17] MEDS ORDERED: PRED20TA PO (18:51)
[2022-02-17] MEDS ORDERED: IBUP-1022 PO (18:51)
[2022-02-17] MEDS ORDERED: LIDO1ADH10 TP (18:51)
[2022-02-17] MEDS ORDERED: ESTR62CR TOP (18:51)
[2022-02-17] MEDS ORDERED: HOME MED LIST COMPLETE! XX SCH (18:55)
[2022-02-17 20:19] LABS: RSV AMPLIFICATION NEGATIVE (NEGATIVE)
[2022-02-17] MEDS ORDERED: IBUPROFEN 400MG TAB PO PRN (20:45)
[2022-02-17] MEDS ORDERED: clonazePAM 1 MG TAB PO SCH (21:00)
[2022-02-17] MEDS ORDERED: ENOXAPARIN 40MG/0.4ML SYRINGE (J1650 PER 10MG) SC SCH (21:00)
[2022-02-17] MEDS: PANTOPRAZOLE 40MG TAB (PROTONIX) PO SCH ×2 (21:00→21:38)
[2022-02-17] MEDS ORDERED: LIDOCAINE 5% (LIDODERM) PATCH TD SCH (21:00)
[2022-02-17] MEDS ORDERED: PARoxetine 10MG TABLET PO SCH (21:00)
[2022-02-17] MEDS: GABAPENTIN 100 MG CAP PO SCH (21:39)
[2022-02-17 21:40] VITALS: BP 144/71
[2022-02-18] MEDS ORDERED: ACETAMINOPHEN TAB 650MG DOSE (2X325MG) PO PRN (05:50)
[2022-02-18 08:04] LABS: HEMATOCRIT 39.2 % (36.0-47.0); HEMOGLOBIN 13.1 g/dl (12.0-15.5); MEAN CORPUSCULAR HEMOGLOBIN 29.7 pg (27.0-33.0); MEAN CORPUSCULAR HGB CONC 33.4 g/dl (32.0-36.5); MEAN CORPUSCULAR VOLUME 88.9 fl (80.0-96.0); PLATELET COUNT, AUTOMATED 270 10^3/uL (150-450); RED BLOOD COUNT 4.41 10^6/uL (4.00-5.40); WHITE BLOOD COUNT 8.6 10^3/uL (4.0-10.0)
[2022-02-18 08:18] LABS: BLOOD UREA NITROGEN 23 MG/DL (9-23); CALCIUM LEVEL 9.3 MG/DL (8.3-10.6); CARBON DIOXIDE LEVEL 26 MMOL/L (20-31); CHLORIDE LEVEL 105 MMOL/L (98-107); CREATININE FOR GFR 0.86 MG/DL (0.55-1.30); GLOMERULAR FILTRATION RATE > 60.0 (>39); GLUCOSE, FASTING 103 MG/DL (74-106); POTASSIUM SERUM 3.6 MMOL/L (3.5-5.1); SODIUM LEVEL 142 MMOL/L (136-145)
[2022-02-18] MEDS ORDERED: LOSARTAN 25 MG TAB PO SCH (09:00)
[2022-02-18] MEDS: GABAPENTIN 100 MG CAP PO SCH (09:13)
[2022-02-18 10:00] VITALS: BP 127/72
[2022-02-18] MEDS ORDERED: COZA1TAB PO ×2 (10:21→10:25)
== END 2022-02-18 11:57 | disposition home or self-care (01) ==
LOC: M ED 11:33 → M ED INP 11:34
PROVIDERS: ADMIT Internal Medicine; ATTEND Internal Medicine
DX: I16.0 Hypertensive urgency (principal); M54.12 Radiculopathy, cervical region; D72.829 Elevated white blood cell count, unspecified; F41.9 Anxiety disorder, unspecified; M81.0 Age-related osteoporosis without current pathological fracture; K21.9 Gastro-esophageal reflux disease without esophagitis; M50.30 Other cervical disc degeneration, unspecified cervical region; M48.02 Spinal stenosis, cervical region; R20.0 Anesthesia of skin; Z88.5 Allergy status to narcotic agent; Z91.048 Other nonmedicinal substance allergy status; Z79.899 Other long term (current) drug therapy
CPT/HCPCS: 36415; 70450; 71045; 71275; 80048; 84484; 85025; 85027; 87631; 93005; 93041; 94760; 96372; 99285; G0378; J1650; Q9967

== ENCOUNTER → 2022-02-22 | Outpatient (CLI) | payer MEDICARE, OTHER ==
[~2022-02-22] MED LIST changes: +COZA1TAB PO; +ESTR62CR TOP; +LIDO1ADH10 TP
[2022-02-22 16:45] LABS: CALCIUM LEVEL 8.7 MG/DL (8.3-10.6); CREATININE FOR GFR 1.08 MG/DL (0.55-1.30); GLOMERULAR FILTRATION RATE 52.8 (>39); POTASSIUM SERUM 4.4 MMOL/L (3.5-5.1)
== END ==
LOC: M LAB 15:52
PROVIDERS: ATTEND Physician Assistant
DX: I95.9 Hypotension, unspecified (principal)

== ENCOUNTER → 2022-02-23 | Outpatient (CLI) | payer MEDICARE, OTHER ==
[~2022-02-23] MED LIST changes: +PROHANCE 279.3MG/ML 5ML VIAL As Ordered ONE
== END ==
LOC: M RAD 14:29
PROVIDERS: ATTEND Physician Assistant
DX: M54.2 Cervicalgia (principal)
CPT/HCPCS: 72156; A9576

== ENCOUNTER → 2022-07-06 | Outpatient (REF) | payer MEDICARE, OTHER ==
[~2022-07-06] MED LIST changes: -PROHANCE 279.3MG/ML 5ML VIAL As Ordered ONE
== END ==
LOC: M SFHCADAM 18:25
PROVIDERS: ATTEND Physician Assistant
DX: E55.9 Vitamin D deficiency, unspecified (principal); K21.9 Gastro-esophageal reflux disease without esophagitis; I10 Essential (primary) hypertension; Z12.11 Encounter for screening for malignant neoplasm of colon; K22.2 Esophageal obstruction; E78.00 Pure hypercholesterolemia, unspecified

== ENCOUNTER → 2022-07-11 | Outpatient (CLI) | payer MEDICARE, OTHER | LOC: M PLAIMG 10:36 | PROVIDERS: ATTEND Pain Medicine Interventional Pain Medicine | DX: M54.14 Radiculopathy, thoracic region (principal) ==

== ENCOUNTER → 2022-09-25 | Outpatient (REF) | payer MEDICARE, OTHER ==
[2022-09-25 18:01] LABS: HEMATOCRIT 41.6 % (36.0-47.0); HEMOGLOBIN 13.1 g/dl (12.0-15.5); MEAN CORPUSCULAR HEMOGLOBIN 29.1 pg (27.0-33.0); MEAN CORPUSCULAR HGB CONC 31.5 g/dl (32.0-36.5); MEAN CORPUSCULAR VOLUME 92.4 fl (80.0-96.0); PLATELET COUNT, AUTOMATED 262 10^3/uL (150-450); WHITE BLOOD COUNT 8.6 10^3/uL (4.0-10.0)
[2022-09-25 18:35] LABS: FOLATE 14.9 NG/ML (>5.4)
[2022-09-25 18:36] LABS: TOTAL 25(OH) VITAMIN D 60.2 NG/ML (20.0-100.0)
[2022-09-25 18:38] LABS: ALBUMIN 4.1 G/DL (3.2-5.2); BILIRUBIN,TOTAL 0.6 MG/DL (0.3-1.2); CALCIUM LEVEL 9.5 MG/DL (8.3-10.6); CHOLESTEROL RISK RATIO 2.53 (<5); CREATININE FOR GFR 1.11 MG/DL (0.55-1.30); GLOMERULAR FILTRATION RATE 51.2 (>39); HDL CHOLESTEROL 75.8 MG/DL (>40); LDL CHOLESTEROL 102.6 MG/DL (<100); NON-HDL-C 116.2 MG/DL; POTASSIUM SERUM 4.7 MMOL/L (3.5-5.1); TOTAL PROTEIN 6.4 G/DL (5.7-8.2)
== END ==
LOC: M SFHCADAM 10:15
PROVIDERS: ATTEND Physician Assistant
DX: E55.9 Vitamin D deficiency, unspecified (principal); K21.9 Gastro-esophageal reflux disease without esophagitis; I10 Essential (primary) hypertension; Z12.11 Encounter for screening for malignant neoplasm of colon; K22.2 Esophageal obstruction; E78.00 Pure hypercholesterolemia, unspecified; Z79.899 Other long term (current) drug therapy

== ENCOUNTER → 2022-10-18 | Outpatient (REF) | payer MEDICARE, OTHER | LOC: M LABDRWAD 12:18 | PROVIDERS: ATTEND Internal Medicine Endocrinology, Diabetes & Metabolism | DX: M81.0 Age-related osteoporosis without current pathological fracture (principal) ==

== ENCOUNTER → 2022-11-22 | Outpatient (REF) | payer MEDICARE, OTHER ==
[~2022-11-22] MED LIST changes: -COZA1TAB PO; +LOSA-527 PO
== END ==
LOC: M LABDRWAD 12:40
PROVIDERS: ATTEND Internal Medicine Endocrinology, Diabetes & Metabolism
DX: M81.0 Age-related osteoporosis without current pathological fracture (principal)

== ENCOUNTER → 2023-01-01 | Outpatient (REF) | payer MEDICARE, OTHER | LOC: M LABDRWAD 15:59 | PROVIDERS: ATTEND Nurse Practitioner Family | DX: M81.0 Age-related osteoporosis without current pathological fracture (principal) ==

== ENCOUNTER → 2023-01-29 | Outpatient (REF) | payer MEDICARE, OTHER ==
[2023-01-29 18:28] LABS: APPEARANCE, URINE HAZY (CLEAR); BACTERIA, URINE AUTO NEGATIVE (NEGATIVE); BILIRUBIN, URINE AUTO NEGATIVE (NEGATIVE); BLOOD, URINE BLOOD 3+ (NEGATIVE); COLOR, URINE YELLOW (YELLOW); GLUCOSE, URINE (UA) AUTO NEGATIVE (NEGATIVE); KETONE, URINE AUTO NEGATIVE (NEGATIVE); LEUKOCYTE ESTERASE, URINE AUTO NEGATIVE (NEGATIVE); NITRITE, URINE AUTO NEGATIVE (NEGATIVE); PROTEIN, URINE AUTO 1+ mg/dL (NEGATIVE); RBC, URINE AUTO 91 /HPF (0-3); SPECIFIC GRAVITY URINE AUTO 1.008 (1.002-1.035); SQUAMOUS EPITHELIAL CELL UR AU 2 /HPF (0-6); UROBILINOGEN, URINE AUTO 0.2 mg/dL (0.0-2.0); WBC, URINE AUTO 5 /HPF (0-3)
== END ==
LOC: M SFHCADAM 17:42
PROVIDERS: ATTEND Physician Assistant Medical
DX: R39.15 Urgency of urination (principal); R19.5 Other fecal abnormalities

== ENCOUNTER → 2023-01-30 | Outpatient (REF) | payer MEDICARE, OTHER | LOC: M SFHCADAM 12:58 | PROVIDERS: ATTEND Physician Assistant Medical | DX: R19.5 Other fecal abnormalities (principal) ==

== ENCOUNTER → 2023-02-06 | Outpatient (REF) | payer MEDICARE, OTHER | LOC: M LABDRWAD 14:28 | PROVIDERS: ATTEND Nurse Practitioner Family | DX: M81.0 Age-related osteoporosis without current pathological fracture (principal) ==

== ENCOUNTER → 2023-03-15 | Outpatient (REF) | payer MEDICARE, OTHER ==
[~2023-03-15] MED LIST changes: -BIOT50004 PO; +BIOT5CAP8 PO
== END ==
LOC: M LABDRWAD 16:29
PROVIDERS: ATTEND Nurse Practitioner Family
DX: M81.0 Age-related osteoporosis without current pathological fracture (principal)

== ENCOUNTER → 2023-04-09 | Outpatient (REF) | payer MEDICARE, OTHER ==
[2023-04-09 15:47] LABS: FREE T4 0.99 NG/DL (0.89-1.76); THYROID STIMULATING HORMONE 0.595 uIU/ML (0.55-4.78)
== END ==
LOC: M SFHCADAM 10:14
PROVIDERS: ATTEND Physician Assistant
DX: H05.20 Unspecified exophthalmos (principal)

== ENCOUNTER → 2023-04-17 | Outpatient (REF) | payer MEDICARE, OTHER | LOC: M LABDRWAD 12:40 | PROVIDERS: ATTEND Nurse Practitioner Family | DX: M81.0 Age-related osteoporosis without current pathological fracture (principal) ==

== ENCOUNTER → 2023-05-16 | Outpatient (REF) | payer MEDICARE, OTHER ==
[~2023-05-16] MED LIST changes: -KLON1TAB PO; +KLON1TAB13 PO; +ROMO105S SQ; +THERTAB52 PO
[2023-05-16 17:48] LABS: CALCIUM LEVEL 8.6 MG/DL (8.3-10.6)
[2023-05-16 17:52] LABS: TOTAL 25(OH) VITAMIN D 74.2 NG/ML (20.0-100.0)
== END ==
LOC: M LABDRWAD 16:29
PROVIDERS: ATTEND Nurse Practitioner Family
DX: M81.0 Age-related osteoporosis without current pathological fracture (principal); E55.9 Vitamin D deficiency, unspecified

== ENCOUNTER 2023-05-28 10:58 | Day surgery (SDC) | payer MEDICARE, OTHER ==
[~2023-05-28] VITALS: Ht 157.5 cm; Wt 53.9 kg
[2023-05-28] MEDS: NS 1,000 ML IV ONE (11:22)
[2023-05-28] MEDS ORDERED: fentaNYL 100 MCG/2 ML INJECTION As Ordered ONE (11:47)
[2023-05-28] MEDS ORDERED: propofoL 200 MG/20 ML VIAL As Ordered ONE (12:25)
[2023-05-28] MEDS ORDERED: ONDANSETRON 4MG 2ML VIAL As Ordered ONE (12:29)
[2023-05-28] MEDS ORDERED: ePHEDrine SULFATE 25 MG/5 ML(5MG/ML) SYRINGE As Ordered ONE (12:33)
[2023-05-28 12:51] VITALS: TEMP 97.3
[2023-05-28 13:05] VITALS: BP 130/58; O2SAT 97
== END 2023-05-28 13:12 | disposition home or self-care (01) ==
LOC: M OPP 10:58
PROVIDERS: ATTEND Internal Medicine Gastroenterology
DX: Z12.11 Encounter for screening for malignant neoplasm of colon (principal); Z86.010 Personal history of colon polyps; D12.6 Benign neoplasm of colon, unspecified; K64.0 First degree hemorrhoids; K57.30 Diverticulosis of large intestine without perforation or abscess without bleeding; K31.89 Other diseases of stomach and duodenum; R13.10 Dysphagia, unspecified; R12 Heartburn; Z79.1 Long term (current) use of non-steroidal anti-inflammatories (NSAID); Z79.620 Long term (current) use of immunosuppressive biologic; Z79.890 Hormone replacement therapy; Z79.891 Long term (current) use of opiate analgesic; Z79.899 Other long term (current) drug therapy
CPT/HCPCS: 43249; 45380; 88305; J2405; J3010

== ENCOUNTER → 2023-06-20 | Outpatient (REF) | payer MEDICARE, OTHER | LOC: M LABDRWAD 17:36 | PROVIDERS: ATTEND Nurse Practitioner Family | DX: M81.0 Age-related osteoporosis without current pathological fracture (principal) ==

== ENCOUNTER → 2023-07-05 | Outpatient (REF) | payer MEDICARE, OTHER ==
[2023-07-05 18:23] LABS: BASO # 0.1 10^3/uL (0.0-0.2); BASO % 0.8 % (0.0-1.0); EOS # 0.2 10^3/uL (0.0-0.5); EOS % 1.8 % (0.0-3.0); HEMATOCRIT 42.4 % (36.0-47.0); HEMOGLOBIN 13.8 g/dl (12.0-15.5); LYMPH # 2.6 10^3/uL (1.5-5.0); MEAN CORPUSCULAR HEMOGLOBIN 29.4 pg (27.0-33.0); MEAN CORPUSCULAR HGB CONC 32.5 g/dl (32.0-36.5); MEAN CORPUSCULAR VOLUME 90.2 fl (80.0-96.0); MONO # 0.6 10^3/uL (0.0-0.8); MONO % 6.5 % (2.0-8.0); NEUTROPHILS # 5.2 10^3/uL (1.5-8.5); NEUTROPHILS % 60.4 % (36.0-66.0); PLATELET COUNT, AUTOMATED 288 10^3/uL (150-450); WHITE BLOOD COUNT 8.5 10^3/uL (4.0-10.0)
[2023-07-05 19:12] LABS: ALBUMIN 4.1 G/DL (3.2-5.2); ALKALINE PHOSPHATASE 88 U/L (46-116); ALT/SGPT 22 U/L (7.0-40); AST/SGOT 12 U/L (<34); BILIRUBIN,TOTAL 0.4 MG/DL (0.3-1.2); BLOOD UREA NITROGEN 23 MG/DL (9-23); CALCIUM LEVEL 9.7 MG/DL (8.3-10.6); CARBON DIOXIDE LEVEL 27 MMOL/L (20-31); CHLORIDE LEVEL 108 MMOL/L (98-107); GLOMERULAR FILTRATION RATE > 60.0 (>39); GLUCOSE, FASTING 96 MG/DL (74-106); POTASSIUM SERUM 5.2 MMOL/L (3.5-5.1); SODIUM LEVEL 142 MMOL/L (136-145); TOTAL 25(OH) VITAMIN D 54.4 NG/ML (20.0-100.0); TOTAL PROTEIN 6.5 G/DL (5.7-8.2); VITAMIN B12 LEVEL 469 PG/ML (211-911)
== END ==
LOC: M SFHCADAM 15:20
PROVIDERS: ATTEND Physician Assistant
DX: I10 Essential (primary) hypertension (principal); E78.00 Pure hypercholesterolemia, unspecified; H05.20 Unspecified exophthalmos; M81.0 Age-related osteoporosis without current pathological fracture; M54.12 Radiculopathy, cervical region; K21.9 Gastro-esophageal reflux disease without esophagitis; F51.01 Primary insomnia

== ENCOUNTER → 2023-07-24 | Outpatient (REF) | payer MEDICARE, OTHER ==
[2023-07-24 18:33] LABS: BLOOD UREA NITROGEN 19 MG/DL (9-23); CALCIUM LEVEL 9.6 MG/DL (8.3-10.6); CARBON DIOXIDE LEVEL 28 MMOL/L (20-31); CHLORIDE LEVEL 108 MMOL/L (98-107); CREATININE FOR GFR 0.96 MG/DL (0.55-1.30); GLOMERULAR FILTRATION RATE > 60.0 (>39); GLUCOSE, FASTING 86 MG/DL (74-106); POTASSIUM SERUM 4.4 MMOL/L (3.5-5.1); SODIUM LEVEL 143 MMOL/L (136-145)
== END ==
LOC: M SFHCADAM 13:12
PROVIDERS: ATTEND Physician Assistant
DX: E87.5 Hyperkalemia (principal)

== ENCOUNTER → 2023-07-25 | Outpatient (CLI) | payer MEDICARE, OTHER | LOC: M CARPUL 08:06 | PROVIDERS: ATTEND Physician Assistant | DX: R00.0 Tachycardia, unspecified (principal) ==

== ENCOUNTER → 2023-08-09 | Outpatient (CLI) | payer MEDICARE, OTHER | LOC: M WHC 06:52 | PROVIDERS: ATTEND Physician Assistant | DX: I70.0 Atherosclerosis of aorta (principal) ==

== ENCOUNTER → 2023-08-22 | Outpatient (REF) | payer MEDICARE, OTHER | LOC: M LABDRWAD 17:18 | PROVIDERS: ATTEND Nurse Practitioner Family | DX: M81.0 Age-related osteoporosis without current pathological fracture (principal) ==

== ENCOUNTER → 2023-09-18 | Outpatient (REF) | payer MEDICARE, OTHER ==
[2023-09-18 19:19] LABS: CHOLESTEROL RISK RATIO 3.09 (<5); HDL CHOLESTEROL 66.9 MG/DL (>40); LDL CHOLESTEROL 123.3 MG/DL (<100); NON-HDL-C 140.1 MG/DL
== END ==
LOC: M LABDRWAD 17:21
PROVIDERS: ATTEND Internal Medicine Cardiovascular Disease
DX: I49.1 Atrial premature depolarization (principal); E78.00 Pure hypercholesterolemia, unspecified

== ENCOUNTER → 2023-10-04 | Outpatient (REF) | payer MEDICARE, OTHER | LOC: M LABDRWAD 16:56 | PROVIDERS: ATTEND Nurse Practitioner Family | DX: M81.0 Age-related osteoporosis without current pathological fracture (principal) ==

== ENCOUNTER → 2023-11-14 | Outpatient (REF) | payer MEDICARE, OTHER | LOC: M LABDRWAD 17:22 | PROVIDERS: ATTEND Nurse Practitioner Family | DX: M81.0 Age-related osteoporosis without current pathological fracture (principal) ==

== ENCOUNTER → 2023-12-19 | Outpatient (REF) | payer MEDICARE, OTHER ==
[2023-12-19 18:21] LABS: CALCIUM LEVEL 9.6 MG/DL (8.3-10.6); CREATININE FOR GFR 0.98 MG/DL (0.55-1.30); GLOMERULAR FILTRATION RATE 58.7 (>39); POTASSIUM SERUM 4.8 MMOL/L (3.5-5.1)
[2023-12-19 18:30] LABS: BASO # 0.1 10^3/uL (0.0-0.2); BASO % 1.2 % (0.0-1.0); EOS # 0.2 10^3/uL (0.0-0.5); EOS % 3.4 % (0.0-3.0); HEMATOCRIT 41.1 % (36.0-47.0); LYMPH % 34.9 % (24.0-44.0); MEAN CORPUSCULAR HEMOGLOBIN 28.9 pg (27.0-33.0); MEAN CORPUSCULAR HGB CONC 31.6 g/dl (32.0-36.5); MEAN CORPUSCULAR VOLUME 91.3 fl (80.0-96.0); MONO # 0.4 10^3/uL (0.0-0.8); MONO % 7.6 % (2.0-8.0); NEUTROPHILS # 3.1 10^3/uL (1.5-8.5); NEUTROPHILS % 52.7 % (36.0-66.0); PLATELET COUNT, AUTOMATED 255 10^3/uL (150-450); WHITE BLOOD COUNT 5.8 10^3/uL (4.0-10.0)
== END ==
LOC: M LABDRWAD 17:34
PROVIDERS: ATTEND Physician Assistant Medical
DX: I65.23 Occlusion and stenosis of bilateral carotid arteries (principal)

== ENCOUNTER → 2023-12-24 | Outpatient (CLI) | payer MEDICARE, OTHER ==
[~2023-12-24] MED LIST changes: +ISOVUE-370 76% 100ML VIAL As Ordered ONE
== END ==
LOC: M RAD 09:23
PROVIDERS: ATTEND Physician Assistant Medical
DX: I65.23 Occlusion and stenosis of bilateral carotid arteries (principal); R42 Dizziness and giddiness
CPT/HCPCS: 70498; Q9967

== ENCOUNTER → 2024-06-04 | Outpatient (CLI) | payer MEDICARE, OTHER ==
[~2024-06-04] MED LIST changes: +DENO60SY2 SC; -ISOVUE-370 76% 100ML VIAL As Ordered ONE; -PROL60SO SC
== END ==
LOC: M ADAMS 09:22
PROVIDERS: ATTEND Physician Assistant
DX: M54.50 Low back pain, unspecified (principal); M54.16 Radiculopathy, lumbar region

== ENCOUNTER → 2024-06-04 | Outpatient (REF) | payer MEDICARE, OTHER ==
[2024-06-04 13:44] LABS: BASO # 0.1 10^3/uL (0.0-0.2); BASO % 0.7 % (0.0-1.0); EOS # 0.3 10^3/uL (0.0-0.5); EOS % 3.6 % (0.0-3.0); HEMATOCRIT 37.3 % (36.0-47.0); HEMOGLOBIN 12.2 g/dl (12.0-15.5); LYMPH # 2.2 10^3/uL (1.5-5.0); LYMPH % 30.5 % (24.0-44.0); MEAN CORPUSCULAR HEMOGLOBIN 29.8 pg (27.0-33.0); MEAN CORPUSCULAR HGB CONC 32.7 g/dl (32.0-36.5); MONO # 0.5 10^3/uL (0.0-0.8); MONO % 7.6 % (2.0-8.0); NEUTROPHILS # 4.1 10^3/uL (1.5-8.5); NEUTROPHILS % 57.3 % (36.0-66.0); PLATELET COUNT, AUTOMATED 218 10^3/uL (150-450); WHITE BLOOD COUNT 7.1 10^3/uL (4.0-10.0)
[2024-06-04 13:52] LABS: ALBUMIN 3.7 G/DL (3.2-5.2); ALKALINE PHOSPHATASE 55 U/L (35-104); ALT/SGPT 21 U/L (7.0-40); AST/SGOT 14 U/L (<34); BILIRUBIN,TOTAL 0.4 MG/DL (0.3-1.2); BLOOD UREA NITROGEN 20 MG/DL (9-23); C REACTIVE PROTEIN QUANTITATIV < 0.50 MG/DL (<1.0); CALCIUM LEVEL 8.9 MG/DL (8.3-10.6); CARBON DIOXIDE LEVEL 26 MMOL/L (20-31); CHLORIDE LEVEL 110 MMOL/L (98-107); CHOLESTEROL LEVEL 134 MG/DL (<200); CHOLESTEROL RISK RATIO 1.79 (<5); CREATININE FOR GFR 0.85 MG/DL (0.55-1.30); GLOMERULAR FILTRATION RATE > 60.0 (>39); GLUCOSE, FASTING 102 MG/DL (74-106); HDL CHOLESTEROL 74.5 MG/DL (>40); LDL CHOLESTEROL 48.7 MG/DL (<100); NON-HDL-C 59.5 MG/DL; POTASSIUM SERUM 4.3 MMOL/L (3.5-5.1); SODIUM LEVEL 145 MMOL/L (136-145); TOTAL PROTEIN 6.2 G/DL (5.7-8.2); TRIGLYCERIDES LEVEL 54 MG/DL (<150)
[2024-06-04 13:53] LABS: THYROID STIMULATING HORMONE 0.797 uIU/ML (0.55-4.78); TOTAL 25(OH) VITAMIN D 77.6 NG/ML (20.0-100.0); VITAMIN B12 LEVEL 483 PG/ML (211-911)
[2024-06-04 13:54] LABS: FREE T4 1.12 NG/DL (0.89-1.76)
[2024-06-04 14:03] LABS: CPK CREATINE PHOSPHOKINASE 44 U/L (34-145); FOLATE 9.1 NG/ML (>5.4)
[2024-06-04 14:07] LABS: ERYTHROCYTE SEDIMENTATION RATE < 1 mm/hr (0-30)
== END ==
LOC: M SFHCADAM 09:28
PROVIDERS: ATTEND Physician Assistant
DX: R42 Dizziness and giddiness (principal); E78.00 Pure hypercholesterolemia, unspecified; E55.9 Vitamin D deficiency, unspecified; K21.9 Gastro-esophageal reflux disease without esophagitis; M54.12 Radiculopathy, cervical region; M54.50 Low back pain, unspecified

== ENCOUNTER → 2024-06-20 | Outpatient (CLI) | payer MEDICARE, OTHER | LOC: M PLARAD 14:24 | PROVIDERS: ATTEND Physician Assistant | DX: M54.16 Radiculopathy, lumbar region (principal); M51.26 Other intervertebral disc displacement, lumbar region ==

== ENCOUNTER → 2024-07-04 | Outpatient (REF) | payer MEDICARE, OTHER ==
[2024-07-04 18:04] LABS: CALCIUM LEVEL 8.8 MG/DL (8.3-10.6); CREATININE FOR GFR 0.95 MG/DL (0.55-1.30); GLOMERULAR FILTRATION RATE 62.1 (>39)
[2024-07-04 18:07] LABS: TOTAL 25(OH) VITAMIN D 72.6 NG/ML (20.0-100.0)
== END ==
LOC: M LABDRWAD 17:01 → M LAB REF 17:01
PROVIDERS: ATTEND Nurse Practitioner Family
DX: M81.0 Age-related osteoporosis without current pathological fracture (principal); E55.9 Vitamin D deficiency, unspecified